=== PATIENT | female | born 1955 | race Caucasian/White ===

== ENCOUNTER → 2017-09-08 | Outpatient (CLI) | payer OTHER ==
[~2017-09-08] MED LIST: ALBUAER19 INH; CHOLTAB3 PO; CYCL10TA6 PO; FEXO1TAB49 PO; FLUT0.0529 NAE; HYDR-5688 PO; NABU500T PO; PRLSR20 PO; SIMV20TA2 PO; TRAZ50TA35 PO
== END | disposition home or self-care (01) ==
LOC: C.LABPBG 12:48
PROVIDERS: ATTEND Family Medicine
DX: R35.0 Frequency of micturition (principal)

== ENCOUNTER → 2017-09-24 | Outpatient (CLI) | payer OTHER | END | disposition home or self-care (01) | LOC: C.LABPBG 09:20 | PROVIDERS: ATTEND Family Medicine | DX: E78.5 Hyperlipidemia, unspecified (principal) ==

== ENCOUNTER 2020-04-05 16:43 | Inpatient (IN) ==
[2020-04-05] MEDS ORDERED: DEXAMETHASONE SOD INJ 10 MG/ML VIAL IV ONE (17:27)
[2020-04-05] MEDS ORDERED: SODIUM CHLORIDE 0.9% 1000ML 1,000 ML IV SCH (17:30)
[2020-04-05 17:46] LABS: Hematocrit (blood only) 39.2 % (37-47); Hemoglobin 12.5 g/dL (12.0-16.0); Immature Granulocytes # (auto) 0.01 K/uL (0.00-0.02); Immature Granulocytes % (auto) 0.2 %; Lymphocytes % (auto) 14.7 %; Mean Corpuscular Hemoglobin 27.9 pg (25-34); Mean Corpuscular Hgb Conc 31.9 g/dL (32-36); Mean Corpuscular Volume 87.5 fL (80-100); Mean Platelet Volume 11.3 fL (7.4-10.4); Monocytes # (auto) 0.28 K/uL (0.11-0.59); Monocytes % (auto) 6.8 %; Neutrophils % (auto) 78.3 %; Platelet Count 128 K/uL (130-400); RDW Coefficient of Variation 14.1 % (11.5-14.5); RDW Standard Deviation 45.1 fL (36.4-46.3); Red Blood Count 4.48 M/uL (4.2-5.4); White Blood Count 4.09 K/uL (4.8-10.8)
[2020-04-05 17:50] LABS: Appearance Urine Clear (Clear); Bilirubin Urine Negative (Negative); Blood Urine Negative (Negative); Color Urine Yellow; Glucose Urine UA Negative (Negative); Ketones Urine Trace (Negative); Leukocyte Esterase Urine Negative (Negative); Nitrite Urine Negative (Negative); Protein Urine Negative (Negative); Specific Gravity Urine 1.005 (1.000-1.030); Urobilinogen Urine Negative (Negative); pH Urine 6.5 (4.5-7.5)
[2020-04-05 17:57] LABS: Partial Thromboplastin Ratio 1.1; Partial Thromboplastin Time 30.2 Seconds (21.0-31.0); Prothrombin Time 10.3 Seconds (9.0-12.0)
[2020-04-05 18:06] LABS: Alanine Aminotransferase 132 U/L (12-78); Albumin Level 3.2 gm/dl (3.4-5.0); Aspartate Aminotransferase 137 U/L (15-37); BUN Creatinine Ratio 9.8 (10-20); Blood Urea Nitrogen 8 mg/dl (7-18); Calcium 8.4 mg/dl (8.5-10.1); Carbon Dioxide 29 mmol/L (21-32); Chloride 101 mmol/L (98-107); Creatinine Clr Calc Pharmacy 85.9 ml/min; Est GFR (African American) 85.7; Glucose 124 mg/dl (70-99); Magnesium 2.2 mg/dl (1.8-2.4); Potassium 3.3 mmol/L (3.5-5.1); Sodium 138 mmol/L (136-145)
[2020-04-05 18:11] LABS: Albumin Globulin Ratio 0.8 (0.9-2); Alkaline Phosphatase 337 U/L (45-117); Bilirubin,Total 1.2 mg/dl (0.2-1); Globulin 4.1 gm/dl (2.5-4.0); Total Protein 7.3 gm/dl (6.4-8.2); Troponin I < 0.015 ng/ml (0-0.045)
[2020-04-05 18:18] LABS: Influenza A virus by PCR Negative (Negative); Influenza B virus by PCR Negative (Negative)
--- NOTE | 2020-04-05 18:25 | XRay Report ---
SINGLE VIEW CHEST CLINICAL HISTORY: Dyspnea. FINDINGS: An AP, portable, upright chest radiograph is compared to study dated 03/29/2016. The examin ation is degraded by portable technique and large body habitus. The heart is top normal for projecti on. Bilateral patchy airspace consolidation is seen throughout both lungs. No large pleural effusion or pneumothorax is identified. The skeletal structures are osteopenic. The bony thorax is grossly int act. IMPRESSION: Multifocal bilateral airspace consolidation is seen throughout both lungs. Differential c onsiderations include an infectious/inflammatory pneumonitis versus pulmonary edema. Clinical correla tion will be essential. Radiographic follow-up to resolution is recommended. ACT 112: Negative or not required by law. Electronically signed by: Stuart Martínez M.D. 04/05/2020 6:23 PM
--- NOTE | 2020-04-05 18:50 | Emergency Department Note ---
Impression & Plan Pneumonia due to virus, COVID-19, Acute respiratory failure with hypoxemia ED Provider Note NAME: JUDAH MYERS AGE: 65 SEX: F : 1955 ARRIVES VIA: Walk-In INFORMANT: Patient, ED PROVIDER(S): Sean العراقي MD Chief Complaint: Shortness of breath HPI: Patient does present with worsening shortness of breath. The patient states that her symptoms began last Friday. Patient does relate that she had checked her O2 sats at home and noticed that they were worse in the 70s. Patient on ambulation back to her room was also noted to be 70%. The patient states that she does have a pulse oximeter at home as she does have elderly parents with whom she lives with. The patient did have a Covid test completed on Friday but is still pending the result. Patient denies any fevers or chills. The patient states that she has felt fatigued with associated cough that is intermittently dry and sometimes productive with brownish sputum. Patient denies any prior history of heart or lung problems. The patient is a non- smoker. Patient denies any vomiting but has had associated nausea along with a decreased p.o. intake and appetite. Patient does not complain of any dysuria, hematuria, constipation or bloody stools. ROS: See HPI for pertinent positives and negatives. A total of 10 systems were reviewed and otherwise negative. Past medical history: See below Surgical history: See below Social history: See below Physical Exam: GENERAL: Nasal cannula mask in place, mild distress. EYE EXAM: Normal conjunctiva. PERRL, no anisocoria and EOM's grossly intact w/o pain. NECK: Supple, no nuchal rigidity, no adenopathy, non-tender. No signs of meningismus. LUNGS: Bibasilar crackles noted. HEART: NSR, no MRG. ABDOMEN: Abdomen soft, non-tender, normo-active bowel sounds, no masses, no rebound or guarding. BACK: No CVA TTP. SKIN: No rashes and no bruising. UPPER EXTREMITIES: Upper extremities are grossly normal. LOWER EXTREMITIES: Grossly normal, no edema. NEURO EXAM: A&O x3, cranial nerves II-XII grossly intact, normal speech, moves all 4 extremities on command w/o issue. Differential diagnoses: Reactive airway disease, pneumonia, pneumothorax, COPD, CHF, infections, cardiac ischemia, pulmonary embolism, musculoskeletal, gastrointestinal, as well as other pathologies. Course: Patient was seen and evaluated the bedside. Full history physical exam was performed. EKG: Indication: Shortness of breath Imaging Studies: Radiology results as stated below per my review in the radiologist's interpretation: SINGLE VIEW CHEST CLINICAL HISTORY: Dyspnea. FINDINGS: An AP, portable, upright chest radiograph is compared to study dated 03/29/2016. The examination is degraded by portable technique and large body habitus. The heart is top normal for projection. Bilateral patchy airspace consolidation is seen throughout both lungs. No large pleural effusion or pneumothorax is identified. The skeletal structures are osteopenic. The bony thorax is grossly intact. IMPRESSION: Multifocal bilateral airspace consolidation is seen throughout both lungs. Differential considerations include an infectious/inflammatory pneumonitis versus pulmonary edema. Clinical correlation will be essential. Radiographic follow-up to resolution is recommended. ACT 112: Negative or not required by law. Electronically signed by: Stuart Martínez M.D. 04/05/2020 6:23 PM Dictated: 04/05/201821 Transcribed: 04/05/201821 Cardiac monitoring: An order was placed for continuous cardiac monitoring. The monitor shows a rate of [] with [] rhythm. MDM: Patient was seen due to concern for hypoxia and increasing shortness of breath. The patient does have leukopenia with lymphopenia and very mild thrombocytopenia. The patient does have transaminitis likely consistent with the patient's viral type illness the patient does not have any abdominal pain or vomiting. Patient did receive dexamethasone along with IV fluids. The patient was stable on 3 L nasal cannula. Urinalysis negative for blood or infection. The patient had negative flu and positive Covid. The patient was informed of these findings and told to inform her family members to get tested and quarantine. Given the patient's significant hypoxia I did speak with the on- call hospitalist and the patient was admitted to the medicine service under Dr. Perez. Critical Care: I have personally spent 52 minutes of critical care time in direct management of this patient. This includes bedside care, interpretation of diagnostic studies, and testing, discussion with consultants, patient, and family members, and other require inpatient management activities. This 52 minutes is in excess of all separately billable procedures. Past Med/Surg History Medical History (Updated 04/05/20 @ 22:03 by Stewart Jones MD) Elevated blood pressure reading Herpes zoster Hypertension Surgical History H/O arthroscopy of knee History of arthroplasty of left knee "Dr. Cai 10/2013" History of colposcopy Family History Mother Gallbladder disease Kidney stones Brother Gallbladder disease Prostate cancer Sister Kidney disease Bipolar disorder Father Myocardial infarction Colon cancer Denies family history of Ovarian cancer Breast cancer Social History Smoking Status: Never smoker Second Hand Exposure: No; Hx Alcohol Use: No Hx Substance Use: No Preferred Language: Finnish Communication Ability: Effective Visual Impairment: No Limitations Hearing Ability: Normal Beliefs That Will Affect Care: None marital status: Current Living Situation: Spouse current occupational status: retired Feels Safe at Home: Yes Childhood Exposure to Second-Hand Smoke: Yes Dental Care, Regularly: Yes Physical Activity Frequency: 3-4 Times per Week Seatbelt Use: always Assistive Devices: Walker Allergies Allergies Allergy/AdvReac Type Severity Reaction Status Date / Time adhesive Allergy Unknown Skin Verified 04/05/20 19:08 irritation No Known Drug Allergies Allergy . Verified 04/05/20 19:08 Home Meds Home Medications Medication Instructions Recorded Confirmed turmeric root extract 500 mg 500 mg PO DAILY 11/23/18 04/05/20 capsule fexofenadine 60 mg tablet 60 mg PO DAILY PRN tab 04/03/20 04/05/20 acetaminophen [Tylenol Extra 1,000 mg PO Q6H PRN 04/05/20 04/05/20 Strength] benzonatate [Tessalon Perles] See Rx Instructions PO TID PRN 04/05/20 04/05/20 cyclobenzaprine 5 mg PO TID PRN 04/05/20 04/05/20 fluticasone propionate [Flonase 2 sprays INTNAS DAILY PRN 04/05/20 04/05/20 Allergy Relief] ibuprofen [Motrin IB] 400 mg PO Q6H PRN 04/05/20 04/05/20 meloxicam 15 mg PO .HOLD 04/05/20 04/05/20 ondansetron HCl [Zofran] 4 mg PO Q6H PRN 04/05/20 04/05/20 Previous Rx's Medication Instructions Recorded bupropion HCl 300 mg 24 hr tablet, 300 mg PO QAM #90 tab 09/30/19 extended release simvastatin 20 mg tablet 20 mg PO QPM #30 tab 12/29/19 losartan 50 mg tablet 50 mg PO DAILY #90 tab 03/15/20 Results & Data (ED) Vital Signs Vital Signs - 24 hr 04/05/20 16:52 04/05/20 17:09 04/05/20 17:15 Temperature 37.0 C Temperature Source Skin Pulse Rate 90 84 Pulse Rate from SpO2 Sensor 84 Respiratory Rate 19 27 H Blood Pressure 148/80 H 113/71 Blood Pressure Mean 102 77 Pulse Oximetry 88 L 97 96 Oxygen Delivery Method Room Air Nasal Cannula Nasal Cannula Oxygen Flow Rate 4 3 Sepsis Recent Fever Within 48 Hours Yes Sepsis New/Unexplained Change in Mental Status N/A Sepsis Action Taken by Nursing No Action Required 04/05/20 17:16 04/05/20 17:20 04/05/20 17:27 Temperature Temperature Source Pulse Rate 83 83 Pulse Rate from SpO2 Sensor 83 83 Respiratory Rate 24 27 H Blood Pressure 124/76 Blood Pressure Mean 98 Pulse Oximetry 97 97 96 Oxygen Delivery Method Nasal Cannula Oxygen Flow Rate 3 Sepsis Recent Fever Within 48 Hours Sepsis New/Unexplained Change in Mental Status Sepsis Action Taken by Nursing 04/05/20 17:30 04/05/20 17:31 04/05/20 18:00 Temperature Temperature Source Pulse Rate 81 83 81 Pulse Rate from SpO2 Sensor 81 83 82 Respiratory Rate 28 H 25 H 25 H Blood Pressure 148/69 H 131/63 Blood Pressure Mean 103 82 Pulse Oximetry 98 98 97 Oxygen Delivery Method Oxygen Flow Rate Sepsis Recent Fever Within 48 Hours Sepsis New/Unexplained Change in Mental Status Sepsis Action Taken by Nursing 04/05/20 18:01 04/05/20 18:30 04/05/20 18:31 Temperature Temperature Source Pulse Rate 80 80 79 Pulse Rate from SpO2 Sensor 80 81 79 Respiratory Rate 29 H 19 24 Blood Pressure 136/75 Blood Pressure Mean 98 Pulse Oximetry 96 97 96 Oxygen Delivery Method Oxygen Flow Rate Sepsis Recent Fever Within 48 Hours Sepsis New/Unexplained Change in Mental Status Sepsis Action Taken by Nursing 04/05/20 19:00 04/05/20 19:01 04/05/20 19:30 Temperature Temperature Source Pulse Rate 79 79 80 Pulse Rate from SpO2 Sensor 79 80 80 Respiratory Rate 27 H 19 22 Blood Pressure 122/83 126/71 Blood Pressure Mean 98 84 Pulse Oximetry 97 97 96 Oxygen Delivery Method Oxygen Flow Rate 3 Sepsis Recent Fever Within 48 Hours Sepsis New/Unexplained Change in Mental Status Sepsis Action Taken by Nursing 04/05/20 19:31 Temperature Temperature Source Pulse Rate 89 Pulse Rate from SpO2 Sensor 80 Respiratory Rate 21 Blood Pressure Blood Pressure Mean Pulse Oximetry 96 Oxygen Delivery Method Oxygen Flow Rate Sepsis Recent Fever Within 48 Hours Sepsis New/Unexplained Change in Mental Status Sepsis Action Taken by Alf Medications Current Medication List: was personally reviewed by me Laboratory Data Attestation: I reviewed the patient's lab results. Result diagrams: 04/06/20 05:35 04/06/20 05:35 Lab Results 04/05/20 04/05/20 04/05/20 Range/Units 17:30 17:30 17:30 WBC 4.09 L (4.8-10.8) K/uL RBC 4.48 (4.2-5.4) M/uL Hgb 12.5 (12.0-16.0) g/dL Hct 39.2 (37-47) % MCV 87.5 (80-100) fL MCH 27.9 (25-34) pg MCHC 31.9 L (32-36) g/dL RDW Std Deviation 45.1 (36.4-46.3) fL RDW Coeff of Ang 14.1 (11.5-14.5) % Plt Count 128 L (130-400) K/uL MPV 11.3 H (7.4-10.4) fL Immature Gran % (Auto) 0.2 % Neut % (Auto) 78.3 % Lymph % (Auto) 14.7 % [place] % (Auto) 6.8 % Eos % (Auto) 0.0 % Baso % (Auto) 0.0 % Neut # (Auto) 3.20 (1.4-6.5) K/uL Lymph # (Auto) 0.60 L (1.2-3.4) K/uL [place] # (Auto) 0.28 (0.11-0.59) K/uL Eos # (Auto) 0.00 (0-0.5) K/uL Baso # (Auto) 0.00 (0-0.2) K/uL Immature Gran # (Auto) 0.01 (0.00-0.02) K/uL PT 10.3 (9.0-12.0) Seconds INR 1.0 (0.9-1.1) APTT 30.2 (21.0-31.0) Seconds PTT Ratio 1.1 D-Dimer (0-500) ug/L FEU Sodium 138 (136-145) mmol/L Potassium 3.3 L (3.5-5.1) mmol/L Chloride 101 (98-107) mmol/L Carbon Dioxide 29 (21-32) mmol/L Anion Gap 8.0 (3-11) BUN 8 (7-18) mg/dl Creatinine 0.84 (0.6-1.2) mg/dl Est Cr Clr Drug Dosing 85.9 ml/min Est GFR ( Amer) 85.7 Est GFR (Non-Af Amer) 74.0 BUN/Creatinine Ratio 9.8 L (10-20) Glucose 124 H (70-99) mg/dl Calcium 8.4 L (8.5-10.1) mg/dl Magnesium 2.2 (1.8-2.4) mg/dl Total Bilirubin 1.2 H (0.2-1) mg/dl AST 137 H (15-37) U/L ALT 132 H (12-78) U/L Alkaline Phosphatase 337 H (45-117) U/L Troponin I < 0.015 (0-0.045) ng/ml Total Protein 7.3 (6.4-8.2) gm/dl Albumin 3.2 L (3.4-5.0) gm/dl Globulin 4.1 H (2.5-4.0) gm/dl Albumin/Globulin Ratio 0.8 L (0.9-2) Urine Color Urine Appearance (Clear) Urine pH (4.5-7.5) Ur Specific [place] (1.000-1.030) Urine Protein (Negative) Urine Glucose (UA) (Negative) Urine Ketones (Negative) Urine Blood (Negative) Urine Nitrite (Negative) Urine Bilirubin (Negative) Urine Urobilinogen (Negative) Ur Leukocyte Esterase (Negative) COVID-19 Eval Order Influ A Molecular Assay (Negative) Influ B Molecular Assay (Negative) SARS-CoV-2, RNA, NAAT (NEGATIVE) Blood Type Antibody Screen 04/05/20 04/05/20 04/05/20 Range/Units 17:30 17:31 17:46 WBC (4.8-10.8) K/uL RBC (4.2-5.4) M/uL Hgb (12.0-16.0) g/dL Hct (37-47) % MCV (80-100) fL MCH (25-34) pg MCHC (32-36) g/dL RDW Std Deviation (36.4-46.3) fL RDW Coeff of Ang (11.5-14.5) % Plt Count (130-400) K/uL MPV (7.4-10.4) fL Immature Gran % (Auto) % Neut % (Auto) % Lymph % (Auto) % [place] % (Auto) % Eos % (Auto) % Baso % (Auto) % Neut # (Auto) (1.4-6.5) K/uL Lymph # (Auto) (1.2-3.4) K/uL [place] # (Auto) (0.11-0.59) K/uL Eos # (Auto) (0-0.5) K/uL Baso # (Auto) (0-0.2) K/uL Immature Gran # (Auto) (0.00-0.02) K/uL PT (9.0-12.0) Seconds INR (0.9-1.1) APTT (21.0-31.0) Seconds PTT Ratio D-Dimer 700 H* (0-500) ug/L FEU Sodium (136-145) mmol/L Potassium (3.5-5.1) mmol/L Chloride (98-107) mmol/L Carbon Dioxide (21-32) mmol/L Anion Gap (3-11) BUN (7-18) mg/dl Creatinine (0.6-1.2) mg/dl Est Cr Clr Drug Dosing ml/min Est GFR ( Amer) Est GFR (Non-Af Amer) BUN/Creatinine Ratio (10-20) Glucose (70-99) mg/dl Calcium (8.5-10.1) mg/dl Magnesium (1.8-2.4) mg/dl Total Bilirubin (0.2-1) mg/dl AST (15-37) U/L ALT (12-78) U/L Alkaline Phosphatase (45-117) U/L Troponin I (0-0.045) ng/ml Total Protein (6.4-8.2) gm/dl Albumin (3.4-5.0) gm/dl Globulin (2.5-4.0) gm/dl Albumin/Globulin Ratio (0.9-2) Urine Color Yellow Urine Appearance Clear (Clear) Urine pH 6.5 (4.5-7.5) Ur Specific [place] 1.005 (1.000-1.030) Urine Protein Negative (Negative) Urine Glucose (UA) Negative (Negative) Urine Ketones Trace H (Negative) Urine Blood Negative (Negative) Urine Nitrite Negative (Negative) Urine Bilirubin Negative (Negative) Urine Urobilinogen Negative (Negative) Ur Leukocyte Esterase Negative (Negative) COVID-19 Eval Order Influ A Molecular Assay Negative (Negative) Influ B Molecular Assay Negative (Negative) SARS-CoV-2, RNA, NAAT (NEGATIVE) Blood Type Antibody Screen 04/05/20 04/05/20 04/05/20 Range/Units 17:47 17:47 20:33 WBC (4.8-10.8) K/uL RBC (4.2-5.4) M/uL Hgb (12.0-16.0) g/dL Hct (37-47) % MCV (80-100) fL MCH (25-34) pg MCHC (32-36) g/dL RDW Std Deviation (36.4-46.3) fL RDW Coeff of Ang (11.5-14.5) % Plt Count (130-400) K/uL MPV (7.4-10.4) fL Immature Gran % (Auto) % Neut % (Auto) % Lymph % (Auto) % [place] % (Auto) % Eos % (Auto) % Baso % (Auto) % Neut # (Auto) (1.4-6.5) K/uL Lymph # (Auto) (1.2-3.4) K/uL [place] # (Auto) (0.11-0.59) K/uL Eos # (Auto) (0-0.5) K/uL Baso # (Auto) (0-0.2) K/uL Immature Gran # (Auto) (0.00-0.02) K/uL PT (9.0-12.0) Seconds INR (0.9-1.1) APTT (21.0-31.0) Seconds PTT Ratio D-Dimer (0-500) ug/L FEU Sodium (136-145) mmol/L Potassium (3.5-5.1) mmol/L Chloride (98-107) mmol/L Carbon Dioxide (21-32) mmol/L Anion Gap (3-11) BUN (7-18) mg/dl Creatinine (0.6-1.2) mg/dl Est Cr Clr Drug Dosing ml/min Est GFR ( Amer) Est GFR (Non-Af Amer) BUN/Creatinine Ratio (10-20) Glucose (70-99) mg/dl Calcium (8.5-10.1) mg/dl Magnesium (1.8-2.4) mg/dl Total Bilirubin (0.2-1) mg/dl AST (15-37) U/L ALT (12-78) U/L Alkaline Phosphatase (45-117) U/L Troponin I (0-0.045) ng/ml Total Protein (6.4-8.2) gm/dl Albumin (3.4-5.0) gm/dl Globulin (2.5-4.0) gm/dl Albumin/Globulin Ratio (0.9-2) Urine Color Urine Appearance (Clear) Urine pH (4.5-7.5) Ur Specific [place] (1.000-1.030) Urine Protein (Negative) Urine Glucose (UA) (Negative) Urine Ketones (Negative) Urine Blood (Negative) Urine Nitrite (Negative) Urine Bilirubin (Negative) Urine Urobilinogen (Negative) Ur Leukocyte Esterase (Negative) COVID-19 [facility] A Molecular Assay (Negative) Influ B Molecular Assay (Negative) SARS-CoV-2, RNA, NAAT POSITIVE A* (NEGATIVE) Blood Type A Positive Antibody Screen NEGATIVE Administered Medications Albuterol (Albuterol Hfa 8 Gm Inhaler) 2 puffs INH Q2R PRN PRN Reason: SOB/WHEEZING Stop: 05/05/20 22:09 Last Admin: 04/06/20 12:26 Dose: 2 puffs Documented by: [id number] Bupropion HCl (Bupropion Xl 300 Mg Tabcr) [facility] [place] Stop: 05/06/20 08:59 Last Admin: 04/06/20 08:47 Dose: 300 mg Documented by: [id number] Enoxaparin Sodium (Enoxaparin Inj 60 Mg/0.6 Ml Syr) 60 mg SQ DAILY@2000 [facility] Stop: 05/05/20 23:29 Last Admin: 04/05/20 23:28 Dose: 60 mg Documented by: [id number] Azithromycin 500 mg/ Dextrose 255 mls @ 125 mls/hr IV Q24H [facility] Stop: 04/13/20 01:59 Last Infusion: 04/06/20 05:17 Dose: 0 mls/hr Documented by: [id number] Admin: 04/06/20 02:35 Dose: 125 mls/hr Documented by: [id number] Dexamethasone 6 mg/ Syringe 1.5 mls @ 1 mls/min IV [facility] Stop: 05/06/20 08:59 Last Admin: 04/06/20 08:48 Dose: 1 mls/min Documented by: [id number] Ceftriaxone Sodium 2,000 mg/ (Dextrose) 70 mls @ 100 mls/hr IV Q24H [facility]; Protocol Stop: 04/12/20 22:59 Last Infusion: 04/06/20 01:45 Dose: 0 mls/hr Documented by: [id number] Admin: 04/05/20 23:27 Dose: 100 mls/hr Documented by: [id number] Losartan Potassium (Losartan Potassium 50 Mg Tab) 50 mg PO DAILY [facility] Stop: 05/06/20 08:59 Last Admin: 04/06/20 08:47 Dose: 50 mg Documented by: [id number] Simvastatin (Simvastatin 20 Mg Tab) 20 mg PO QPM [facility] Stop: 05/05/20 23:29 Last Admin: 04/05/20 23:29 Dose: 20 mg Documented by: [id number] Sodium Chloride (Sodium Chloride 0.9% 10ml Flush) 30 ml IV Q24H [facility] Stop: 04/10/20 00:01 Last Admin: 04/06/20 01:45 Dose: 30 ml Documented by: [id number] Discontinued Medications Acetaminophen (Acetaminophen 325 Mg Tab) Confirm Administered Dose 650 mg .ROUTE .STK-MED ONE Stop: 04/05/20 20:46 Last Admin: 04/05/20 20:53 Dose: 650 mg Documented by: [id number] Albuterol (Albuterol Hfa 8 Gm Inhaler) 2 puffs INH QIDR [facility]EN Stop: 05/06/20 06:59 Last Admin: 04/06/20 11:44 Dose: Not Given Documented by: [id number] Admin: 04/06/20 08:22 Dose: 2 puffs Documented by: [id number] Dexamethasone (Dexamethasone Sod Inj 10 Mg/Ml Vial) 6 mg IV NOW ONE Stop: 04/05/20 17:28 Last Admin: 04/05/20 17:49 Dose: 6 mg Documented by: [id number] Sodium Chloride (Nss 1000ml) 1,000 mls @ 999 mls/hr IV .Q1H1M [facility] Stop: 04/05/20 18:30 Last Infusion: 04/05/20 18:41 Dose: 0 mls/hr Documented by: [id number] Admin: 04/05/20 17:40 Dose: 999 mls/hr Documented by: [id number] Remdesivir 200 mg/ Sodium (Chloride) 250 mls @ 125 mls/hr IV NOW ONE; Protocol Stop: 04/06/20 01:59 Last Infusion: 04/06/20 02:34 Dose: 0 mls/hr Documented by: [id number] Admin: 04/06/20 00:15 Dose: 125 mls/hr Documented by: [id number] Ioversol (Optiray 320 125ml) 118 ml IV ONCE ONE Stop: 04/05/20 20:50 Last Admin: 04/05/20 20:50 Dose: 1 ml Documented by: [id number] Discharge Plan Visit Data Chief Complaint: Flu Like Symptoms Stated Complaint: SOB, FEVER, COUGH ED Provider: Sean العراقي Discharge Problem: Pneumonia due to virus, COVID-19, Acute respiratory failure with hypoxemia Patient Disposition: Admitted As Inpatient Discharge Instructions Interventions: ED Discharge Assessment Last Done: 04/05/20 22:10
[2020-04-05 20:10] LABS: D Dimer 700 ug/L FEU (0-500)
[2020-04-05] MEDS ORDERED: ACETAMINOPHEN 325 MG TAB ONE (20:45)
[2020-04-05] MEDS ORDERED: OPTIRAY 320 125ml IV ONE (20:49)
--- NOTE | 2020-04-05 21:07 | History & Physical Report ---
Date of Service April 05, 2020 Assessment & Plan (1) Pneumonia due to COVID-19 virus: Pneumonia due to COVID-19/acute respiratory failure with hypoxemia- Decadron 6 mg IV daily Convalescent plasma, consent obtained Remdesivir IV per protocol Ceftriaxone 2 g IV daily Azithromycin 500 mg IV daily Ventolin HFA 2 puffs 4 times daily, and every 2 hours as needed D-dimer is elevated. CT angiography PE protocol has been ordered. Will be placed on Lovenox. Present on Admission?: Yes (2) Acute respiratory failure with hypoxemia: See above Present on Admission?: Yes (3) Hypertension: Continue losartan Present on Admission?: Yes (4) CARRION (nonalcoholic steatohepatitis): Abnormal LFTs. Follow serially for stability Present on Admission?: Yes (5) NITIN (generalized anxiety disorder): Continue bupropion Present on Admission?: Yes (6) Dyslipidemia: Continue simvastatin 20 mg in the evening Present on Admission?: Yes History of Present Illness Chief Complaint: The patient reports that she began to develop generalized weakness and SOB about 6 days ago, and has worsened significantly over the past 2 days. Primary Care Provider: Amarilis Lance MD The patient is a 65 yo female with a PMH of HTN, NITIN, Arhtritis, Hepatiatis, CARRION, Asthma, insomnia, GERD, DLD, and pancytopenia. She presents as noted above. Workup in the ED included a CXR which showed a multifocal pneumonia, platelets 128, K 3.3, D- Dimer 700 and COVID-19 +. Allergies Allergy/AdvReac Type Severity Reaction Status Date / Time adhesive Allergy Unknown Skin Verified 04/05/20 19:08 irritation No Known Drug Allergies Allergy . Verified 04/05/20 19:08 Home Medications Medication Instructions Recorded Confirmed Type turmeric root extract 500 mg 500 mg PO DAILY 11/23/18 04/05/20 History capsule bupropion HCl 300 mg 24 hr tablet, 300 mg PO QAM #90 tab 09/30/19 04/05/20 Rx extended release simvastatin 20 mg tablet 20 mg PO QPM #30 tab 12/29/19 04/05/20 Rx losartan 50 mg tablet 50 mg PO DAILY #90 tab 03/15/20 04/05/20 Rx fexofenadine 60 mg tablet 60 mg PO DAILY PRN tab 04/03/20 04/05/20 History acetaminophen [Tylenol Extra 1,000 mg PO Q6H PRN 04/05/20 04/05/20 History Strength] benzonatate [Tessalon Perles] See Rx Instructions PO TID PRN 04/05/20 04/05/20 History cyclobenzaprine 5 mg PO TID PRN 04/05/20 04/05/20 History fluticasone propionate [Flonase 2 sprays INTNAS DAILY PRN 04/05/20 04/05/20 History Allergy Relief] ibuprofen [Motrin IB] 400 mg PO Q6H PRN 04/05/20 04/05/20 History meloxicam 15 mg PO .HOLD 04/05/20 04/05/20 History ondansetron HCl [Zofran] 4 mg PO Q6H PRN 04/05/20 04/05/20 History Past Med/Surg History Medical History (Updated 04/05/20 @ 22:03 by Stewart Jones MD) Elevated blood pressure reading Herpes zoster Hypertension Surgical History H/O arthroscopy of knee History of arthroplasty of left knee "Dr. Cai 10/2013" History of colposcopy Family History Mother Gallbladder disease Kidney stones Brother Gallbladder disease Prostate cancer Sister Kidney disease Bipolar disorder Father Myocardial infarction Colon cancer Denies family history of Ovarian cancer Breast cancer Social History Smoking Status: Never smoker Second Hand Exposure: No; Hx Alcohol Use: No Hx Substance Use: No Preferred Language: Armenian Visual Impairment: No Limitations Hearing Ability: Normal Beliefs That Will Affect Care: None marital status: Current Living Situation: Spouse current occupational status: retired Feels Safe at Home: Yes Safety Concerns: Feels Safe At This Time Childhood Exposure to Second-Hand Smoke: Yes Dental Care, Regularly: Yes Physical Activity Frequency: 3-4 Times per Week Seatbelt Use: always Review of Systems Review of Systems: The patient denies chest pain, palpitations, lower extremity swelling, sore throat, fevers, chills, sweats, nausea, vomiting, diarrhea , constipation, abdominal pain, pelvic pain, blood in urine or stool, dysuria, urinary frequency or urgency, lightheadedness, dizziness, headache, memory loss, loss of consciousness, rash, abnormal bruising or bleeding, imbalance, focal weakness, numbness or tingling in arms or legs, generalized arthralgias or myalgias, neck pain, or night sweats. The review of systems is otherwise negative other than for that already noted above, and at least 10 systems have been reviewed. Physical Exam Physical Exam: The patient is awake, alert and oriented 3, well developed and well nourished, normocephalic and atraumatic, lying in bed and in no acute distress. HEENT--PERRL, EOMI, mucous membranes and oropharynx normal. Neck--supple. No JVD. No bruits. Thyroid normal, trachea midline, no adenopathy. Heart--normal S1 and S2. No murmurs, rubs or gallops. Lungs--clear bilaterally, no respiratory distress, no accessory muscle use. Abdomen--normal bowel sounds and soft. Nontender. Nondistended. Obese Extremities--no cyanosis or clubbing. No edema. Dermatologic--normal skin turgor, normal color, no abnormal lymph nodes, no rash. Neurologic--cranial nerves II through XII grossly intact. Rheumatologic--normal range of motion. Psychiatric--normal affect. Results & Data Results & Data ([facility]) Vital Signs (Past 12 Hours) Vital Signs Temp Pulse Resp BP Pulse Ox 04/05/20 19:31 89 21 96 04/05/20 19:30 80 22 126/71 96 04/05/20 19:01 79 19 97 04/05/20 19:00 79 27 H 122/83 97 04/05/20 18:31 79 24 96 04/05/20 18:30 80 19 136/75 97 04/05/20 18:01 80 29 H 96 04/05/20 18:00 81 25 H 131/63 97 04/05/20 17:31 83 25 H 98 04/05/20 17:30 81 28 H 148/69 H 98 04/05/20 17:27 96 04/05/20 17:20 83 27 H 124/76 97 04/05/20 17:16 83 24 97 04/05/20 17:15 84 27 H 113/71 96 04/05/20 17:09 97 04/05/20 16:52 98.6 F 90 19 148/80 H 88 L Laboratory Results Laboratory Results WBC 4.09 K/uL (4.8-10.8) L 04/05/20 17:30 RBC 4.48 M/uL (4.2-5.4) 04/05/20 17:30 Hgb 12.5 g/dL (12.0-16.0) 04/05/20 17:30 Hct 39.2 % (37-47) 04/05/20 17:30 MCV 87.5 fL (80-100) 04/05/20 17:30 MCH 27.9 pg (25-34) 04/05/20 17:30 MCHC 31.9 g/dL (32-36) L 04/05/20 17:30 RDW Std Deviation 45.1 fL (36.4-46.3) 04/05/20 17:30 RDW Coeff of Ang 14.1 % (11.5-14.5) 04/05/20 17:30 Plt Count 128 K/uL (130-400) L 04/05/20 17:30 MPV 11.3 fL (7.4-10.4) H 04/05/20 17:30 Immature Gran % (Auto) 0.2 % 04/05/20 17:30 Neut % (Auto) 78.3 % 04/05/20 17:30 Lymph % (Auto) 14.7 % 04/05/20 17:30 [place] % (Auto) 6.8 % 04/05/20 17:30 Eos % (Auto) 0.0 % 04/05/20 17:30 Baso % (Auto) 0.0 % 04/05/20 17:30 Neut # (Auto) 3.20 K/uL (1.4-6.5) 04/05/20 17:30 Lymph # (Auto) 0.60 K/uL (1.2-3.4) L 04/05/20 17:30 [place] # (Auto) 0.28 K/uL (0.11-0.59) 04/05/20 17:30 Eos # (Auto) 0.00 K/uL (0-0.5) 04/05/20 17:30 Baso # (Auto) 0.00 K/uL (0-0.2) 04/05/20 17:30 Immature Gran # (Auto) 0.01 K/uL (0.00-0.02) 04/05/20 17:30 PT 10.3 Seconds (9.0-12.0) 04/05/20 17:30 INR 1.0 (0.9-1.1) 04/05/20 17:30 APTT 30.2 Seconds (21.0-31.0) 04/05/20 17:30 PTT Ratio 1.1 04/05/20 17:30 D-Dimer 700 ug/L FEU (0-500) H* 04/05/20 17:30 Sodium 138 mmol/L (136-145) 04/05/20 17:30 Potassium 3.3 mmol/L (3.5-5.1) L 04/05/20 17:30 Chloride 101 mmol/L (98-107) 04/05/20 17:30 Carbon Dioxide 29 mmol/L (21-32) 04/05/20 17:30 Anion Gap 8.0 (3-11) 04/05/20 17:30 BUN 8 mg/dl (7-18) 04/05/20 17:30 Creatinine 0.84 mg/dl (0.6-1.2) 04/05/20 17:30 Est Cr Clr Drug Dosing 85.9 ml/min 04/05/20 17:30 Est GFR ( Amer) 85.7 04/05/20 17:30 Est GFR (Non-Af Amer) 74.0 04/05/20 17:30 BUN/Creatinine Ratio 9.8 (10-20) L 04/05/20 17:30 Glucose 124 mg/dl (70-99) H 04/05/20 17:30 Calcium 8.4 mg/dl (8.5-10.1) L 04/05/20 17:30 Magnesium 2.2 mg/dl (1.8-2.4) 04/05/20 17:30 Total Bilirubin 1.2 mg/dl (0.2-1) H 04/05/20 17:30 AST 137 U/L (15-37) H 04/05/20 17:30 ALT 132 U/L (12-78) H 04/05/20 17:30 Alkaline Phosphatase 337 U/L (45-117) H 04/05/20 17:30 Troponin I < 0.015 ng/ml (0-0.045) 04/05/20 17:30 Total Protein 7.3 gm/dl (6.4-8.2) 04/05/20 17:30 Albumin 3.2 gm/dl (3.4-5.0) L 04/05/20 17:30 Globulin 4.1 gm/dl (2.5-4.0) H 04/05/20 17:30 Albumin/Globulin Ratio 0.8 (0.9-2) L 04/05/20 17:30 Urine Color Yellow 04/05/20 17:31 Urine Appearance Clear (Clear) 04/05/20 17:31 Urine pH 6.5 (4.5-7.5) 04/05/20 17:31 Ur Specific [place] 1.005 (1.000-1.030) 04/05/20 17:31 Urine Protein Negative (Negative) 04/05/20 17:31 Urine Glucose (UA) Negative (Negative) 04/05/20 17:31 Urine Ketones Trace (Negative) H 04/05/20 17:31 Urine Blood Negative (Negative) 04/05/20 17:31 Urine Nitrite Negative (Negative) 04/05/20 17:31 Urine Bilirubin Negative (Negative) 04/05/20 17:31 Urine Urobilinogen Negative (Negative) 04/05/20 17:31 Ur Leukocyte Esterase Negative (Negative) 04/05/20 17:31 COVID-19 Eval Order Covid19 IDNow [facility] 04/05/20 17:47 Influ A Molecular Assay Negative (Negative) 04/05/20 17:46 Influ B Molecular Assay Negative (Negative) 04/05/20 17:46 SARS-CoV-2, RNA, NAAT POSITIVE (NEGATIVE) A* 04/05/20 17:47 Code Status & VTE Plan Code Status Full code VTE Prophylaxis Plan VTE Prophylaxis will be ordered: Yes PG Care Time/CCT Total # of Minutes Spent Total Time Spent with Patient: Total time spent is greater than 50% in coordination of care (as documented) at patient's floor/unit and/or counseling patient: Coding Level of Care Code 25290 Initial Inpt Care Lvl 3 Diagnoses Pneumonia due to COVID-19 virus U07.1; J12.89 Acute respiratory failure with hypoxemia J96.01 Hypertension I10 CARRION (nonalcoholic steatohepatitis) K75.81 NITIN (generalized anxiety disorder) F41.1 Dyslipidemia E78.5
[2020-04-05 21:23] LABS: Base Excess VBG 1.9 mEq/L; Oxygen Saturation VBG 90.9 %; pH VBG 7.42 (7.36-7.41)
--- NOTE | 2020-04-05 22:10 | Billing Data ---
Date of Service April 05, 2020 Coding Level of Care Code 35162 Initial Inpt Care Lvl 3
[2020-04-05] MEDS ORDERED: ONDANSETRON INJ 2 MG/ML 2 ML VIAL IV PRN (22:46)
[2020-04-05] MEDS ORDERED: FEXOFENADINE 60 MG TAB PO PRN (22:46)
[2020-04-05] MEDS ORDERED: CYCLOBENZAPRINE HCL 5 MG TAB PO PRN (22:46)
[2020-04-05] MEDS: cefTRIAXone SODIUM 2,000 MG in DEXTROSE 5% 50 ML IV SCH (23:27)
[2020-04-05] MEDS: ENOXAPARIN INJ 60 MG/0.6 ML SYR SQ SCH (23:28)
[2020-04-05] MEDS: SIMVASTATIN 20 MG TAB PO SCH (23:29)
[2020-04-06] MEDS ORDERED: REMDESIVIR 200 MG in SODIUM CHLORIDE 0.9% 210 ML IV ONE
[2020-04-06] MEDS: SODIUM CHLORIDE 0.9% 10ML FLUSH IV SCH ×2 (01:45→22:12)
[2020-04-06] MEDS: AZITHROMYCIN 500 MG in DEXTROSE 5% 250 ML IV SCH (02:35)
[2020-04-06 06:23] LABS: Hematocrit (blood only) 38.4 % (37-47); Hemoglobin 12.2 g/dL (12.0-16.0); Lymphocytes # (auto) 0.38 K/uL (1.2-3.4); Lymphocytes % (auto) 10.6 %; Mean Corpuscular Hgb Conc 31.8 g/dL (32-36); Mean Corpuscular Volume 88.1 fL (80-100); Mean Platelet Volume 11.6 fL (7.4-10.4); Monocytes # (auto) 0.18 K/uL (0.11-0.59); Neutrophils # (auto) 3.01 K/uL (1.4-6.5); Neutrophils % (auto) 84.4 %; Platelet Count 143 K/uL (130-400); RDW Coefficient of Variation 13.9 % (11.5-14.5); RDW Standard Deviation 45.5 fL (36.4-46.3); Red Blood Count 4.36 M/uL (4.2-5.4); White Blood Count 3.57 K/uL (4.8-10.8)
[2020-04-06 06:34] LABS: INR 0.9 (0.9-1.1); Partial Thromboplastin Ratio 1.1; Partial Thromboplastin Time 31.4 Seconds (21.0-31.0); Prothrombin Time 9.9 Seconds (9.0-12.0)
[2020-04-06 06:57] LABS: Albumin Level 2.8 gm/dl (3.4-5.0); BUN Creatinine Ratio 7.8 (10-20); Creatinine Clr Calc Pharmacy 86.8 ml/min; Magnesium 2.5 mg/dl (1.8-2.4); Potassium 3.4 mmol/L (3.5-5.1)
[2020-04-06 07:02] LABS: Albumin Globulin Ratio 0.7 (0.9-2); Bilirubin,Total 0.5 mg/dl (0.2-1); Total Protein 6.8 gm/dl (6.4-8.2)
--- NOTE | 2020-04-06 08:08 | CT Scan Report ---
CT angio chest PE protocol CT DOSE: 531.18 mGycm HISTORY: 65 years-old Female with PE. Acute shortness of breath. COVID Positive. TECHNIQUE: Multiple CTA images of the chest were obtained after the intravenous administration of 118 ml Optiray 320. Coronal and sagittal MIPS were obtained from the axial data set and were submitted for review. All measurements were obtained according to NASCET criteria. A dose lowering technique w as utilized adhering to the principles of ALARA. COMPARISON: Chest radiograph of same day FINDINGS: CTA: Mild to moderate cardiomegaly. No pericardial effusion. Respiratory motion artifact limits the study. No thoracic aortic aneurysm or dissection. Patency of the imaged great vessels. The pulmonary arteri al tree is opacified to the level of the subsegmental branches. No filling defects are identified to suggest thromboembolic disease. CT CHEST: 8 mm hypodense right thyroid nodule. Mildly prominent mediastinal lymph nodes measuring up to 9 mm ar e likely reactive. The inferior lung bases are not imaged. There is no pneumothorax or pleural effusi on. Extensive multilobar distribution of patchy groundglass and alveolar opacities. Central airways a re patent. Small hiatal hernia. Hepatosplenomegaly with hepatic steatosis. Unremarkable soft tissues. No acute f racture. Subcentimeter sclerotic foci of the humeral heads. IMPRESSION: 1. Cardiomegaly without evidence of pulmonary thromboembolic disease. 2. Extensive multilobar patchy groundglass and alveolar opacities are compatible with multifocal pneu monia. 3. Mildly prominent mediastinal lymph nodes are likely reactive. 4. Hepatic steatosis with hepatosplenomegaly. ACT 112: Negative or not required by law. The above report was generated using voice recognition software. It may contain grammatical, syntax o r spelling errors. Electronically signed by: Mario Matias M.D. 04/06/2020 8:06 AM
[2020-04-06] MEDS: ALBUTEROL HFA 8 GM INHALER INH SCH ×2 (08:22→11:44)
[2020-04-06] MEDS: buPROPion XL 300 MG TABCR PO SCH (08:47)
[2020-04-06] MEDS: LOSARTAN POTASSIUM 50 MG TAB PO SCH (08:47)
[2020-04-06] MEDS: dexAMETHasone 6 MG in SYRINGE 0 ML IV SCH (08:48)
[2020-04-06] MEDS: ALBUTEROL HFA 8 GM INHALER INH PRN (12:26)
--- NOTE | 2020-04-06 13:07 | Electrocardiogram Report ---
Test Reason : Blood Pressure : / mmHG Vent. Rate : 082 BPM Atrial Rate : 082 BPM P-R Int : 138 ms QRS Dur : 086 ms QT Int : 382 ms P-R-T Axes : 047 000 017 degrees QTc Int : 446 ms Normal sinus rhythm Normal ECG When compared with ECG of 29-MAR-2016 19:05, No significant change was found Confirmed by Anthony Vee ([id number]) on 04/06/2020 1:07:17 PM Referred By: REFERRED SELF Confirmed By:Tuan Vee
--- NOTE | 2020-04-06 14:55 | Hospitalist Progress Note ---
Date of Service April 06, 2020 Assessment & Plan (1) Pneumonia due to COVID-19 virus: Initially diagnosed on 04/03/2020. - Convalescent plasma ordered - pending - Continue remdesivir (End date: 04/09/2020) - Continue dexamethasone 6 mg IV daily (End date: 04/14/2020) - Check WBC and procalcitonin tomorrow AM - If negative, will stop CAP abx. - Supplemental O2 as needed (2) Acute respiratory failure with hypoxemia: See above (3) Elevated blood sugar: Blood sugar up to 221 on 04/06 while on steroids. - Check A1c in the morning (4) Hepatitis: Abnormal LFTs on admission with AST/ALT at 140/130. Concern for viral hepatitis from Covid, though normal coagulation labs indicate acceptable hepatic function. - Follow serially for stability (5) Hypertension: BP is 150/80 today. - Continue losartan (6) NITIN (generalized anxiety disorder): No acute inpatient needs today. - Continue bupropion (7) Dyslipidemia: - Continue simvastatin (8) DVT prophylaxis: Lovenox 60 mg SQ daily Admission and Anticipated Discharge Date Admission Date: April 05, 2020 Subjective Feeling overall stable. No major shortness of breath while at rest. Some shortness of breath with exertion. Reports no fevers/chills, chest pain, abdominal pain, nausea, or vomiting. Physical Exam Constitutional: WD/WN, vitals as above Eyes: EOM intact bilaterally; no conjunctival abnormality ENMT: external ear and nose normal, oropharynx normal Neck: trachea midline, no thyromegaly normal visual inspection Respiratory: normal respiratory effort, lungs clear to auscultation no respiratory distress Cardiovascular: RRR, no murmur, no edema Gastrointestinal (Abdomen): Inspection/Auscultation: abdomen normal to inspection; abdomen not distended Musculoskeletal: no cyanosis or clubbing, extremities motor strength 5/5 Skin: no rashes, warm and dry Neurologic: moves all extremities and awake Psychiatric: Orientation: alert, oriented to person and cooperative Results & Data Results & Data ([facility]) Vital Signs (Past 12 Hours) Vital Signs Temp Pulse Pulse Resp BP Pulse Ox 04/06/20 14:12 37.0 C 81 148/81 H 92 04/06/20 12:28 81 18 91 04/06/20 12:00 37.3 C 82 150/77 H 90 04/06/20 09:48 36.9 C 85 146/78 H 91 04/06/20 08:22 73 18 91 04/06/20 08:00 71 04/06/20 07:15 36.8 C 74 18 126/74 91 04/06/20 04:00 36.6 C 66 18 123/74 93 PG Care Time/CCT Total # of Minutes Spent Total Time Spent with Patient: Total time spent is greater than 50% in coordination of care (as documented) at patient's floor/unit and/or counseling patient: Coding Level of Care Code 17336 Subseq Hosp Care Lvl 3 Diagnoses Pneumonia due to COVID-19 virus U07.1; J12.89 Acute respiratory failure with hypoxemia J96.01 Elevated blood sugar R73.9 Hepatitis K75.9 Hypertension I10 NITIN (generalized anxiety disorder) F41.1 Dyslipidemia E78.5 DVT prophylaxis Z29.9
[2020-04-06] MEDS: REMDESIVIR 100 MG in SODIUM CHLORIDE 0.9% 230 ML IV SCH (20:53)
[2020-04-06] MEDS: ENOXAPARIN INJ 60 MG/0.6 ML SYR SQ SCH (20:53)
[2020-04-06] MEDS: SIMVASTATIN 20 MG TAB PO SCH (20:54)
[2020-04-06] MEDS: BENZONATATE 100 MG CAPSULE PO PRN (22:12)
[2020-04-06] MEDS: ACETAMINOPHEN 325 MG TAB PO PRN (22:12)
[2020-04-06] MEDS: cefTRIAXone SODIUM 2,000 MG in DEXTROSE 5% 50 ML IV SCH (22:17)
[2020-04-07 07:05] LABS: Hematocrit (blood only) 38.4 % (37-47); Hemoglobin 12.1 g/dL (12.0-16.0); Immature Granulocytes # (auto) 0.03 K/uL (0.00-0.02); Immature Granulocytes % (auto) 0.4 %; Lymphocytes # (auto) 0.66 K/uL (1.2-3.4); Mean Corpuscular Hemoglobin 27.9 pg (25-34); Mean Corpuscular Hgb Conc 31.5 g/dL (32-36); Mean Corpuscular Volume 88.5 fL (80-100); Mean Platelet Volume 10.8 fL (7.4-10.4); Monocytes # (auto) 0.56 K/uL (0.11-0.59); Monocytes % (auto) 6.8 %; Neutrophils % (auto) 84.8 %; Platelet Count 203 K/uL (130-400); RDW Coefficient of Variation 13.8 % (11.5-14.5); RDW Standard Deviation 45.4 fL (36.4-46.3); Red Blood Count 4.34 M/uL (4.2-5.4); White Blood Count 8.25 K/uL (4.8-10.8)
[2020-04-07 07:22] LABS: Partial Thromboplastin Time 27.3 Seconds (21.0-31.0); Prothrombin Time 10.1 Seconds (9.0-12.0)
[2020-04-07 07:37] LABS: Estimated Average Glucose 120 mg/dl; Hemoglobin A1C 5.8 % (4.5-5.6)
[2020-04-07 07:38] LABS: Albumin Level 2.8 gm/dl (3.4-5.0); BUN Creatinine Ratio 14.8 (10-20); Creatinine Clr Calc Pharmacy 82.8 ml/min; Est GFR (African American) 82.2; Est GFR (Non-African American) 70.9; Magnesium 2.5 mg/dl (1.8-2.4); Potassium 3.4 mmol/L (3.5-5.1)
[2020-04-07 07:41] LABS: Albumin Globulin Ratio 0.7 (0.9-2); Bilirubin,Total 0.6 mg/dl (0.2-1); Globulin 4.2 gm/dl (2.5-4.0)
[2020-04-07] MEDS: dexAMETHasone 6 MG in SYRINGE 0 ML IV SCH (09:01)
[2020-04-07] MEDS: LOSARTAN POTASSIUM 50 MG TAB PO SCH (09:02)
[2020-04-07] MEDS: AZITHROMYCIN 500 MG in DEXTROSE 5% 250 ML IV SCH (09:02)
[2020-04-07] MEDS: buPROPion XL 300 MG TABCR PO SCH (09:02)
[2020-04-07] MEDS: ALBUTEROL HFA 8 GM INHALER INH PRN (09:33)
--- NOTE | 2020-04-07 14:49 | Hospitalist Progress Note ---
Date of Service April 07, 2020 Assessment & Plan (1) Pneumonia due to COVID-19 virus: Initially diagnosed on 04/03/2020. - Convalescent plasma ordered - pending - Continue remdesivir (End date: 04/09/2020) - Continue dexamethasone 6 mg IV daily (End date: 04/14/2020) - Stop CAP abx for negative procalcitonin on 04/07. - Supplemental O2 as needed (2) Acute respiratory failure with hypoxemia: See above (3) Elevated blood sugar: Blood sugar up to 221 on 04/06 while on steroids. - A1c was 5.8% on 04/07 - Monitor (4) Hepatitis: Abnormal LFTs on admission with AST/ALT at 140/130. Concern for viral hepatitis from Covid, though normal coagulation labs indicate acceptable hepatic function. - Follow serially for stability - Still elevated. (5) Hypertension: BP is 170/90 today. - Continue losartan (6) NITIN (generalized anxiety disorder): No acute inpatient needs today. - Continue bupropion (7) Dyslipidemia: - Continue simvastatin (8) DVT prophylaxis: Lovenox 60 mg SQ daily Admission and Anticipated Discharge Date Admission Date: April 05, 2020 Subjective Some shortness of breath with exertion today. Reports no fevers/chills, chest pain, abdominal pain, nausea, or vomiting. Physical Exam Constitutional: WD/WN, vitals as above Eyes: EOM intact bilaterally; no conjunctival abnormality ENMT: external ear and nose normal, oropharynx normal Neck: trachea midline, no thyromegaly normal visual inspection Respiratory: normal respiratory effort, lungs clear to auscultation no respiratory distress Cardiovascular: RRR, no murmur, no edema Gastrointestinal (Abdomen): Inspection/Auscultation: abdomen normal to inspection; abdomen not distended Musculoskeletal: no cyanosis or clubbing, extremities motor strength 5/5 Skin: no rashes, warm and dry Neurologic: moves all extremities and awake Psychiatric: Orientation: alert, oriented to person and cooperative Results & Data Results & Data ([facility]) Vital Signs (Past 12 Hours) Vital Signs Temp Pulse Resp BP BP Pulse Ox 04/07/20 12:00 90 04/07/20 10:56 36.8 C 81 20 168/89 H 84 L 04/07/20 09:33 80 18 90 04/07/20 08:00 37.0 C 79 20 148/81 H 90 04/07/20 04:00 37.1 C 62 21 134/79 93 PG Care Time/CCT Total # of Minutes Spent Total Time Spent with Patient: Total time spent is greater than 50% in coordination of care (as documented) at patient's floor/unit and/or counseling patient: Coding Level of Care Code 71013 Subseq Hosp Care Lvl 3 Diagnoses Pneumonia due to COVID-19 virus U07.1; J12.89 Acute respiratory failure with hypoxemia J96.01 Elevated blood sugar R73.9 Hepatitis K75.9 Hypertension I10 NITIN (generalized anxiety disorder) F41.1 Dyslipidemia E78.5 DVT prophylaxis Z29.9
[2020-04-07] MEDS: REMDESIVIR 100 MG in SODIUM CHLORIDE 0.9% 230 ML IV SCH (22:30)
[2020-04-07] MEDS: SODIUM CHLORIDE 0.9% 10ML FLUSH IV SCH (22:31)
[2020-04-07] MEDS: ENOXAPARIN INJ 60 MG/0.6 ML SYR SQ SCH (22:33)
[2020-04-07] MEDS: SIMVASTATIN 20 MG TAB PO SCH (22:33)
[2020-04-07] MEDS: cefTRIAXone SODIUM 2,000 MG in DEXTROSE 5% 50 ML IV SCH (23:33)
[2020-04-08 04:41] LABS: Hematocrit (blood only) 35.6 % (37-47); Hemoglobin 11.4 g/dL (12.0-16.0); Immature Granulocytes # (auto) 0.04 K/uL (0.00-0.02); Immature Granulocytes % (auto) 0.6 %; Lymphocytes # (auto) 0.74 K/uL (1.2-3.4); Mean Corpuscular Hemoglobin 28.6 pg (25-34); Mean Corpuscular Volume 89.2 fL (80-100); Mean Platelet Volume 10.5 fL (7.4-10.4); Monocytes # (auto) 0.43 K/uL (0.11-0.59); Monocytes % (auto) 6.9 %; Neutrophils # (auto) 4.98 K/uL (1.4-6.5); Neutrophils % (auto) 80.5 %; Platelet Count 215 K/uL (130-400); RDW Standard Deviation 46.4 fL (36.4-46.3); Red Blood Count 3.99 M/uL (4.2-5.4); White Blood Count 6.19 K/uL (4.8-10.8)
[2020-04-08 04:52] LABS: Partial Thromboplastin Time 28.6 Seconds (21.0-31.0); Prothrombin Time 10.6 Seconds (9.0-12.0)
[2020-04-08] MEDS: dexAMETHasone 6 MG in SYRINGE 0 ML IV SCH (09:00)
[2020-04-08] MEDS: buPROPion XL 300 MG TABCR PO SCH (09:00)
[2020-04-08] MEDS: LOSARTAN POTASSIUM 50 MG TAB PO SCH (09:00)
[2020-04-08] MEDS: AZITHROMYCIN 500 MG in DEXTROSE 5% 250 ML IV SCH (09:00)
[2020-04-08] MEDS ORDERED: COUGH DROP (SUGAR FREE) LOZ 24 LOZ/1 BOX BUCCAL ONE (16:35)
[2020-04-08 17:16] LABS: Albumin Globulin Ratio 0.7 (0.9-2); Albumin Level 2.6 gm/dl (3.4-5.0); Bilirubin,Total 0.5 mg/dl (0.2-1); Calcium 8.1 mg/dl (8.5-10.1); Creatinine Clr Calc Pharmacy 109.1 ml/min; Globulin 3.7 gm/dl (2.5-4.0); Magnesium 2.6 mg/dl (1.8-2.4); Phosphorus 3.3 mg/dl (2.5-4.9); Potassium 3.5 mmol/L (3.5-5.1); Total Protein 6.3 gm/dl (6.4-8.2)
[2020-04-08] MEDS: BENZONATATE 100 MG CAPSULE PO PRN (17:20)
[2020-04-08] MEDS: REMDESIVIR 100 MG in SODIUM CHLORIDE 0.9% 230 ML IV SCH (20:49)
[2020-04-08] MEDS: SIMVASTATIN 20 MG TAB PO SCH (20:57)
[2020-04-08] MEDS: ENOXAPARIN INJ 60 MG/0.6 ML SYR SQ SCH (20:57)
[2020-04-08] MEDS: cefTRIAXone SODIUM 2,000 MG in DEXTROSE 5% 50 ML IV SCH (22:21)
[2020-04-08] MEDS: SODIUM CHLORIDE 0.9% 10ML FLUSH IV SCH (22:21)
[2020-04-09] MEDS: ACETAMINOPHEN 325 MG TAB PO PRN ×3 (00:35→17:05)
[2020-04-09] MEDS ORDERED: SODIUM CHLORIDE 0.65% NA SOLN 45 ML (OCEAN) PRN (04:40)
[2020-04-09] MEDS: BENZONATATE 100 MG CAPSULE PO PRN (05:50)
[2020-04-09 07:18] LABS: Hematocrit (blood only) 37.2 % (37-47); Hemoglobin 11.9 g/dL (12.0-16.0); Mean Corpuscular Hemoglobin 28.5 pg (25-34); Mean Platelet Volume 10.1 fL (7.4-10.4); Platelet Count 257 K/uL (130-400); RDW Coefficient of Variation 13.9 % (11.5-14.5); RDW Standard Deviation 45.5 fL (36.4-46.3); Red Blood Count 4.18 M/uL (4.2-5.4); White Blood Count 7.58 K/uL (4.8-10.8)
[2020-04-09 07:26] LABS: Oxygen Saturation VBG 68.6 %; pH VBG 7.42 (7.36-7.41)
[2020-04-09 07:52] LABS: Albumin Level 2.7 gm/dl (3.4-5.0); BUN Creatinine Ratio 24.4 (10-20); Calcium 8.6 mg/dl (8.5-10.1); Creatinine Clr Calc Pharmacy 109.1 ml/min; Magnesium 2.3 mg/dl (1.8-2.4); Potassium 3.7 mmol/L (3.5-5.1)
[2020-04-09 07:55] LABS: Albumin Globulin Ratio 0.7 (0.9-2); Bilirubin,Total 0.9 mg/dl (0.2-1); Globulin 3.7 gm/dl (2.5-4.0); Total Protein 6.4 gm/dl (6.4-8.2)
[2020-04-09] MEDS: LOSARTAN POTASSIUM 50 MG TAB PO SCH (08:06)
[2020-04-09] MEDS: dexAMETHasone 6 MG in SYRINGE 0 ML IV SCH (08:08)
[2020-04-09] MEDS: buPROPion XL 300 MG TABCR PO SCH (08:09)
[2020-04-09] MEDS: AZITHROMYCIN 500 MG in DEXTROSE 5% 250 ML IV SCH (08:10)
--- NOTE | 2020-04-09 08:34 | XRay Report ---
XR chest 1V portable CLINICAL HISTORY: Covid; worsening hypoxemia COMPARISON STUDY: Chest radiograph and chest CT April 05, 2020. FINDINGS: No pneumothorax or pleural effusion is noted. Cardiomegaly is noted. Multifocal bilateral a irspace opacities have progressed since chest radiograph and chest CT April 05, 2020. IMPRESSION: Progression of multifocal bilateral airspace opacities consistent with an infectious pro cess. ACT 112: Negative or not required by law. Electronically signed by: Breezy Fu M.D. 04/09/2020 8:33 AM
--- NOTE | 2020-04-09 12:29 | Hospitalist Progress Note ---
Date of Service April 09, 2020 Assessment & Plan (1) Pneumonia due to COVID-19 virus: Initially diagnosed on 04/03/2020. - Convalescent plasma ordered - transfused on 04/06 - Continue remdesivir (End date: 04/09/2020) - Continue dexamethasone 6 mg IV daily (End date: 04/14/2020) - Stop CAP abx for negative procalcitonin on 04/09. - Supplemental O2 as needed -> Worsening today. Needing high-flow and looking more tired. pCO2 up slightly. (2) Acute respiratory failure with hypoxemia: See above (3) Elevated blood sugar: Blood sugar up to 221 on 04/06 while on steroids. - A1c was 5.8% on 04/07 - Monitor (4) Hepatitis: Abnormal LFTs on admission with AST/ALT at 140/130. Concern for viral hepatitis from Covid, though normal coagulation labs indicate acceptable hepatic function. - Follow serially for stability - Still elevated, though stable. (5) Hypertension: BP is 150/100 today. - Continue losartan (6) NITIN (generalized anxiety disorder): No acute inpatient needs today. - Continue bupropion (7) Dyslipidemia: - Continue simvastatin (8) DVT prophylaxis: Lovenox 60 mg SQ daily Admission and Anticipated Discharge Date Admission Date: April 05, 2020 Subjective More tired. Doesn't feel that much less shortness of breath. Coughed up some blood, but possibly from nasal passages as her nose has been stuffy from the high-flow. Reports no fevers/chills, chest pain, abdominal pain, nausea, or vomiting. Physical Exam Constitutional: WD/WN, vitals as above + acute distress and + obese Eyes: EOM intact bilaterally; no conjunctival abnormality ENMT: external ear and nose normal, oropharynx normal Neck: trachea midline, no thyromegaly normal visual inspection Respiratory: + labored breathing and + tachypneic; no respiratory distress Auscultation: + diminished lung sounds; no crackles Cardiovascular: RRR, no murmur, no edema Gastrointestinal (Abdomen): Inspection/Auscultation: abdomen normal to inspection; abdomen not distended Musculoskeletal: no cyanosis or clubbing, extremities motor strength 5/5 Skin: no rashes, warm and dry Neurologic: moves all extremities and awake Psychiatric: Orientation: alert, oriented to person and cooperative Results & Data Results & Data ([facility]) Vital Signs (Past 12 Hours) Vital Signs Temp Pulse Pulse Resp BP Pulse Ox 04/09/20 11:07 36.6 C 69 18 148/97 H 95 04/09/20 10:24 36.8 C 67 18 149/89 H 98 04/09/20 09:33 36.8 C 72 18 164/84 H 93 04/09/20 08:00 37.1 C 73 18 171/95 H 92 04/09/20 07:47 76 20 95 04/09/20 07:00 59 L 04/09/20 05:00 37.0 C 71 22 167/88 H 90 04/09/20 02:07 63 22 99 PG Care Time/CCT Total # of Minutes Spent Total Time Spent with Patient: Total time spent is greater than 50% in coordination of care (as documented) at patient's floor/unit and/or counseling patient: Coding Level of Care Code 73811 Subseq Hosp Care Lvl 3 Diagnoses Pneumonia due to COVID-19 virus U07.1; J12.89 Acute respiratory failure with hypoxemia J96.01 Elevated blood sugar R73.9 Hepatitis K75.9 Hypertension I10 NITIN (generalized anxiety disorder) F41.1 Dyslipidemia E78.5 DVT prophylaxis Z29.9
[2020-04-09] MEDS: ENOXAPARIN INJ 60 MG/0.6 ML SYR SQ SCH (21:41)
[2020-04-09] MEDS: REMDESIVIR 100 MG in SODIUM CHLORIDE 0.9% 230 ML IV SCH (21:41)
[2020-04-09] MEDS: SIMVASTATIN 20 MG TAB PO SCH (21:43)
[2020-04-09] MEDS: SODIUM CHLORIDE 0.9% 10ML FLUSH IV SCH (23:45)
[2020-04-10] MEDS: BENZONATATE 100 MG CAPSULE PO PRN (05:30)
[2020-04-10] MEDS: dexAMETHasone 6 MG in SYRINGE 0 ML IV SCH (08:13)
[2020-04-10] MEDS: LOSARTAN POTASSIUM 50 MG TAB PO SCH (08:14)
[2020-04-10] MEDS: buPROPion XL 300 MG TABCR PO SCH (08:16)
[2020-04-10] MEDS: ALBUTEROL HFA 8 GM INHALER INH PRN ×2 (08:25→11:31)
[2020-04-10 10:27] LABS: Base Excess VBG 7.3 mEq/L; Oxygen Saturation VBG 70.6 %; pH VBG 7.46 (7.36-7.41)
[2020-04-10] MEDS: guaiFENesin 600 MG TABCR PO SCH ×2 (11:47→20:47)
[2020-04-10 12:54] LABS: BUN Creatinine Ratio 20.1 (10-20); Calcium 8.7 mg/dl (8.5-10.1); Est GFR (African American) 98.3; Est GFR (Non-African American) 84.8
--- NOTE | 2020-04-10 15:38 | Hospitalist Progress Note ---
Date of Service April 10, 2020 Assessment & Plan (1) Pneumonia due to COVID-19 virus: Initially diagnosed on 04/03/2020. - Convalescent plasma ordered - transfused on 04/06 - Continue remdesivir (End date: 04/09/2020) - Continue dexamethasone 6 mg IV daily (End date: 04/14/2020) - Stopped CAP abx for negative procalcitonin on 04/09. - Supplemental O2 as needed -> Worsening today. Needing high-flow and looking more tired. pCO2 stable. Encouraged proning today which has been improving her breathing. Added guaifenesin. (2) Acute respiratory failure with hypoxemia: See above (3) Elevated blood sugar: Blood sugar up to 221 on 04/06 while on steroids. - A1c was 5.8% on 04/07 - Monitor (4) Hepatitis: Abnormal LFTs on admission with AST/ALT at 140/130. Concern for viral hepatitis from Covid, though normal coagulation labs indicate acceptable hepatic function. - Follow serially for stability - Still elevated, though stable. (5) Hypertension: BP is 150/80 today. - Continue losartan (6) NITIN (generalized anxiety disorder): No acute inpatient needs today. - Continue bupropion (7) Dyslipidemia: - Continue simvastatin (8) DVT prophylaxis: Lovenox 60 mg SQ daily Admission and Anticipated Discharge Date Admission Date: April 05, 2020 Subjective More tired. Is having more sputum coming up. Reports no fevers/chills, chest pain, abdominal pain, nausea, or vomiting. Physical Exam Constitutional: WD/WN, vitals as above + acute distress and + obese Eyes: EOM intact bilaterally; no conjunctival abnormality ENMT: external ear and nose normal, oropharynx normal Neck: trachea midline, no thyromegaly normal visual inspection Respiratory: normal respiratory effort, lungs clear to auscultation + labored breathing and + tachypneic; no respiratory distress Auscultation: + diminished lung sounds; no crackles Cardiovascular: RRR, no murmur, no edema Gastrointestinal (Abdomen): Inspection/Auscultation: abdomen normal to inspection; abdomen not distended Musculoskeletal: no cyanosis or clubbing, extremities motor strength 5/5 Skin: no rashes, warm and dry Neurologic: moves all extremities and awake Psychiatric: Orientation: alert, oriented to person and cooperative Results & Data Results & Data ([place]) Vital Signs (Past 12 Hours) Vital Signs Temp Pulse Pulse Resp BP Pulse Ox 04/10/20 14:15 36.8 C 76 18 154/83 H 93 04/10/20 11:32 84 20 91 04/10/20 11:30 36.8 C 84 18 147/79 H 95 04/10/20 08:35 36.7 C 88 18 159/82 H 95 04/10/20 08:25 85 24 92 04/10/20 07:00 78 04/10/20 06:04 73 24 94 04/10/20 05:38 30 H 91 04/10/20 05:31 32 H 92 04/10/20 05:28 75 90 04/10/20 05:20 85 32 H 85 L 04/10/20 04:00 162/85 H PG Care Time/CCT Total # of Minutes Spent Total Time Spent with Patient: Total time spent is greater than 50% in coordination of care (as documented) at patient's floor/unit and/or counseling patient: Coding Level of Care Code 31770 Subseq Hosp Care Lvl 3 Diagnoses Pneumonia due to COVID-19 virus U07.1; J12.89 Acute respiratory failure with hypoxemia J96.01 Elevated blood sugar R73.9 Hepatitis K75.9 Hypertension I10 NITIN (generalized anxiety disorder) F41.1 Dyslipidemia E78.5 DVT prophylaxis Z29.9
[2020-04-10] MEDS ORDERED: FUROSEMIDE 20 MG in SYRINGE 0 ML IV ONE (16:15)
[2020-04-10] MEDS: ENOXAPARIN INJ 60 MG/0.6 ML SYR SQ SCH (20:46)
[2020-04-10] MEDS: SIMVASTATIN 20 MG TAB PO SCH (20:47)
[2020-04-11] MEDS: ACETAMINOPHEN 325 MG TAB PO PRN (01:44)
[2020-04-11 07:00] LABS: BUN Creatinine Ratio 27.3 (10-20); Calcium 8.9 mg/dl (8.5-10.1); Creatinine Clr Calc Pharmacy 114.3 ml/min; Est GFR (African American) 110.6; Est GFR (Non-African American) 95.5; Magnesium 2.2 mg/dl (1.8-2.4); Potassium 3.6 mmol/L (3.5-5.1)
[2020-04-11 07:07] LABS: Base Excess VBG 8.4 mEq/L; Oxygen Saturation VBG 72.8 %; pH VBG 7.45 (7.36-7.41)
[2020-04-11 08:06] LABS: Hematocrit (blood only) 39.2 % (37-47); Hemoglobin 12.1 g/dL (12.0-16.0); Mean Corpuscular Hemoglobin 27.6 pg (25-34); Mean Corpuscular Hgb Conc 30.9 g/dL (32-36); Mean Corpuscular Volume 89.5 fL (80-100); Mean Platelet Volume 10.2 fL (7.4-10.4); Platelet Count 204 K/uL (130-400); RDW Coefficient of Variation 13.9 % (11.5-14.5); Red Blood Count 4.38 M/uL (4.2-5.4); White Blood Count 9.36 K/uL (4.8-10.8)
[2020-04-11] MEDS: dexAMETHasone 6 MG in SYRINGE 0 ML IV SCH (08:24)
[2020-04-11] MEDS: guaiFENesin 600 MG TABCR PO SCH ×2 (08:24→20:00)
[2020-04-11] MEDS: LOSARTAN POTASSIUM 50 MG TAB PO SCH (08:25)
[2020-04-11] MEDS: buPROPion XL 300 MG TABCR PO SCH (08:25)
[2020-04-11] MEDS: NYSTATIN SUSP 500,000 U/5 ML UDC PO SCH ×3 (08:42→20:01)
[2020-04-11] MEDS: ENOXAPARIN INJ 60 MG/0.6 ML SYR SQ SCH (19:55)
[2020-04-11] MEDS: SIMVASTATIN 20 MG TAB PO SCH (20:00)
--- NOTE | 2020-04-11 20:27 | Hospitalist Progress Note ---
Date of Service April 11, 2020 Assessment & Plan (1) Pneumonia due to COVID-19 virus: Initially diagnosed on 04/03/2020. - Convalescent plasma ordered - transfused on 04/06 - Finished on remdesivir (End date: 04/09/2020) - Continue dexamethasone 6 mg IV daily (End date: 04/14/2020) - Stopped CAP abx for negative procalcitonin on 04/09. - Supplemental O2 as needed -> continues to require high flow Cannot tolerate proning but has been leaning forward with her head down on the bed while si tting. (2) Acute respiratory failure with hypoxemia: See above (3) Elevated blood sugar: Blood sugar up to 221 on 04/06 while on steroids. - A1c was 5.8% on 04/07 - Monitor (4) Hepatitis: Abnormal LFTs on admission with AST/ALT at 140/130. Concern for viral hepatitis from Covid, though normal coagulation labs indicate acceptable hepatic function. - Follow serially for stability - Still elevated, though stable. (5) Hypertension: BP is 150/80 today. - Continue losartan (6) NITIN (generalized anxiety disorder): No acute inpatient needs today. - Continue bupropion (7) Dyslipidemia: - Continue simvastatin (8) DVT prophylaxis: Lovenox 60 mg SQ daily Admission and Anticipated Discharge Date Admission Date: April 05, 2020 Subjective Patient reports feeling mildly better. She reports having intermittent cough. She is still requiring high flow oxygen. Review of Systems Review of Systems: All systems reviewed & are unremarkable except as noted in HPI & below Physical Exam Physical Exam: Constitutional: WD/WN, vitals as above + obese Eyes: EOM intact bilaterally; no conjunctival abnormality ENMT: external ear and nose normal, oropharynx normal Neck: trachea midline, no thyromegaly normal visual inspection Respiratory: normal respiratory effort; no respiratory distress Auscultation: + diminished lung sounds; no crackles Cardiovascular: RRR, no murmur, no edema Gastrointestinal (Abdomen): Inspection/Auscultation: abdomen normal to inspection; abdomen not distended Musculoskeletal: no cyanosis or clubbing, extremities motor strength 5/5 Skin: no rashes, warm and dry Neurologic: moves all extremities and awake Psychiatric: Orientation: alert, oriented to person and cooperative Results & Data Results & Data ([facility]) Vital Signs (Past 12 Hours) Vital Signs Temp Pulse Resp BP Pulse Ox 04/11/20 19:20 72 20 91 04/11/20 18:37 36.9 C 75 18 124/76 95 04/11/20 17:34 97 04/11/20 15:39 76 20 96 04/11/20 14:07 36.8 C 78 18 122/78 96 04/11/20 12:09 76 20 91 04/11/20 11:00 37.1 C 71 18 124/77 92 PG Care Time/CCT Total # of Minutes Spent Total Time Spent with Patient: Total time spent is greater than 50% in coordination of care (as documented) at patient's floor/unit and/or counseling patient: Coding Level of Care Code 19208 Subseq Hosp Care Lvl 3 Diagnoses Pneumonia due to COVID-19 virus U07.1; J12.89 Acute respiratory failure with hypoxemia J96.01 Elevated blood sugar R73.9 Hepatitis K75.9 Hypertension I10 NITIN (generalized anxiety disorder) F41.1 Dyslipidemia E78.5 DVT prophylaxis Z29.9 Time Spent (min) 35
[2020-04-12] MEDS: NYSTATIN SUSP 500,000 U/5 ML UDC PO SCH ×3 (09:07→20:37)
[2020-04-12] MEDS: guaiFENesin 600 MG TABCR PO SCH ×2 (09:07→20:37)
[2020-04-12] MEDS: buPROPion XL 300 MG TABCR PO SCH (09:08)
[2020-04-12] MEDS: dexAMETHasone 6 MG in SYRINGE 0 ML IV SCH (09:08)
[2020-04-12] MEDS: LOSARTAN POTASSIUM 50 MG TAB PO SCH (09:08)
[2020-04-12] MEDS: ENOXAPARIN INJ 60 MG/0.6 ML SYR SQ SCH (20:37)
[2020-04-12] MEDS: SIMVASTATIN 20 MG TAB PO SCH (20:38)
--- NOTE | 2020-04-12 22:47 | Hospitalist Progress Note ---
Date of Service April 12, 2020 Assessment & Plan (1) Pneumonia due to COVID-19 virus: Initially diagnosed on 04/03/2020. - Convalescent plasma ordered - transfused on 04/06 - Finished on remdesivir (End date: 04/09/2020) - Continue dexamethasone 6 mg IV daily (End date: 04/14/2020) - Stopped CAP abx for negative procalcitonin on 04/09. - Supplemental O2 as needed -> continues to require high flow Cannot tolerate proning but has been leaning forward with her head down on the bed while si tting. -no siginficant change. -required a PPE to examine patient due to lobal pandemic. (2) Acute respiratory failure with hypoxemia: See above (3) Elevated blood sugar: Blood sugar up to 221 on 04/06 while on steroids. - A1c was 5.8% on 04/07 - Monitor (4) Hepatitis: Abnormal LFTs on admission with AST/ALT at 140/130. Concern for viral hepatitis from Covid, though normal coagulation labs indicate acceptable hepatic function. - Follow serially for stability - Still elevated, though stable. (5) Hypertension: BP at goal. - Continue losartan (6) NITIN (generalized anxiety disorder): No acute inpatient needs today. - Continue bupropion (7) Dyslipidemia: - Continue simvastatin (8) DVT prophylaxis: Lovenox 60 mg SQ daily Admission and Anticipated Discharge Date Admission Date: April 05, 2020 Subjective Patient reports no significant change today. Review of Systems Review of Systems: All systems reviewed & are unremarkable except as noted in HPI & below Physical Exam Physical Exam: Constitutional: WD/WN, vitals as above + obese Eyes: EOM intact bilaterally; no conjunctival abnormality ENMT: external ear and nose normal, oropharynx normal Neck: trachea midline, no thyromegaly normal visual inspection Respiratory: normal respiratory effort; no respiratory distress Auscultation: + diminished lung sounds; no crackles Cardiovascular: RRR, no murmur, no edema Gastrointestinal (Abdomen): Inspection/Auscultation: abdomen normal to inspection; abdomen not distended Musculoskeletal: no cyanosis or clubbing, extremities motor strength 5/5 Skin: no rashes, warm and dry Neurologic: moves all extremities and awake Psychiatric: Orientation: alert, oriented to person and cooperative Results & Data Results & Data ([facility]) Vital Signs (Past 12 Hours) Vital Signs Temp Pulse Pulse Resp BP BP Pulse Ox 04/12/20 22:22 77 20 91 04/12/20 20:11 73 18 97 04/12/20 19:10 37.3 C 77 16 117/68 91 04/12/20 19:08 76 16 96 04/12/20 16:00 81 04/12/20 14:44 37.2 C 76 20 109/67 93 04/12/20 11:24 37.1 C 76 20 108/68 96 PG Care Time/CCT Total # of Minutes Spent Total Time Spent with Patient: Total time spent is greater than 50% in coordination of care (as documented) at patient's floor/unit and/or counseling patient: Coding Level of Care Code 01288 Subseq Hosp Care Lvl 3 Diagnoses Pneumonia due to COVID-19 virus U07.1; J12.89 Acute respiratory failure with hypoxemia J96.01 Elevated blood sugar R73.9 Hepatitis K75.9 Hypertension I10 NITIN (generalized anxiety disorder) F41.1 Dyslipidemia E78.5 DVT prophylaxis Z29.9
[2020-04-13] MEDS: buPROPion XL 300 MG TABCR PO SCH (09:37)
[2020-04-13] MEDS: dexAMETHasone 6 MG in SYRINGE 0 ML IV SCH (09:37)
[2020-04-13] MEDS: LOSARTAN POTASSIUM 50 MG TAB PO SCH (09:37)
[2020-04-13] MEDS: guaiFENesin 600 MG TABCR PO SCH ×2 (09:37→19:37)
[2020-04-13] MEDS: NYSTATIN SUSP 500,000 U/5 ML UDC PO SCH ×3 (09:37→19:37)
--- NOTE | 2020-04-13 17:17 | XRay Report ---
XR chest 1V portable HISTORY: 65 years-old Female hypoxia acute hypoxia COMPARISON: Chest radiograph 04/10/2020, CTA chest 04/05/2020 TECHNIQUE: Portable AP view of the chest FINDINGS: Patient is rotated. Cardiac silhouette is enlarged. Multifocal bilateral patchy airspace opacities ar e redemonstrated and have mildly improved within the left lung. There may be mild progression from th e bilateral upper lung zone distributions. Blunting of the costophrenic angles may be secondary to ai rspace disease versus trace effusions. No pneumothorax. Degenerative changes of the shoulders and spi ne. IMPRESSION: Persistent multifocal bilateral airspace opacities compatible with ongoing pneumonia. ACT 112: Negative or not required by law. The above report was generated using voice recognition software. It may contain grammatical, syntax o r spelling errors. Electronically signed by: Mario Matias M.D. 04/13/2020 5:16 PM
[2020-04-13] MEDS: ENOXAPARIN INJ 60 MG/0.6 ML SYR SQ SCH (19:37)
[2020-04-13] MEDS: SIMVASTATIN 20 MG TAB PO SCH (19:37)
[2020-04-13] MEDS: DOCUSATE SODIUM/SENNA 50/8.6MG TAB PO SCH (19:38)
[2020-04-13] MEDS ORDERED: ALUMINUM/MAGNESIUM SUSP 30 ML UDC PO PRN (23:29)
--- NOTE | 2020-04-14 07:31 | Hospitalist Progress Note ---
Date of Service April 13, 2020 Assessment & Plan (1) Pneumonia due to COVID-19 virus: Despite subjectively feeling better, patient is still requiring a large amount of oxygen. Repeated imgaing which continues to show patchy infiltrates, will repeat labs in the AM and consider diuretics. This was initially diagnosed on 04/03/2020. - Convalescent plasma ordered - transfused on 04/06 - Finished remdesivir (End date: 04/09/2020) - Continue dexamethasone 6 mg IV daily (End date: 04/14/2020) - Stopped CAP abx for negative procalcitonin on 04/09. - Supplemental O2 as needed -> continues to require high flow Cannot tolerate proning but has been leaning forward with her head down on the bed while sitting. -required a PPE to examine patient due to global pandemic. -recommended patient to prone more. (2) Acute respiratory failure with hypoxemia: See above (3) Elevated blood sugar: Blood sugar up to 221 on 04/06 while on steroids. - A1c was 5.8% on 04/07 - Monitor (4) Hepatitis: Abnormal LFTs on admission with AST/ALT at 140/130. Concern for viral hepatitis from Covid, though normal coagulation labs indicate acceptable hepatic function. - Follow serially for stability - Still elevated, though stable. (5) Hypertension: BP at goal. - Continue losartan (6) NITIN (generalized anxiety disorder): No acute inpatient needs today. - Continue bupropion (7) Dyslipidemia: - Continue simvastatin (8) DVT prophylaxis: Lovenox 60 mg SQ daily Admission and Anticipated Discharge Date Admission Date: April 05, 2020 Subjective Patient reports feeling better today. She states each day she is breathing a little bit better. She reports only "proning" about 40 minutes a day. Review of Systems Review of Systems: All systems reviewed & are unremarkable except as noted in HPI & below Physical Exam Physical Exam: Constitutional: WD/WN, vitals as above + obese Eyes: EOM intact bilaterally; no conjunctival abnormality ENMT: external ear and nose normal, oropharynx normal Neck: trachea midline, no thyromegaly normal visual inspection Respiratory: normal respiratory effort; no respiratory distress Auscultation: + diminished lung sounds; no crackles Cardiovascular: RRR, no murmur, no edema Gastrointestinal (Abdomen): Inspection/Auscultation: abdomen normal to inspection; abdomen not distended Musculoskeletal: no cyanosis or clubbing, extremities motor strength 5/5 Skin: no rashes, warm and dry Neurologic: moves all extremities and awake Psychiatric: Orientation: alert, oriented to person and cooperative Results & Data Results & Data ([facility]) Vital Signs (Past 12 Hours) Vital Signs Temp Pulse Pulse Resp BP Pulse Ox Pulse Ox 04/14/20 07:28 63 04/14/20 04:00 36.8 C 69 18 92 04/14/20 02:15 78 18 92 04/14/20 01:09 74 04/14/20 01:07 93 04/14/20 00:00 37.0 C 71 18 125/76 96 04/13/20 23:21 73 20 92 04/13/20 21:04 75 20 94 PG Care Time/CCT Total # of Minutes Spent Total Time Spent with Patient: Total time spent is greater than 50% in coordination of care (as documented) at patient's floor/unit and/or counseling patient: Coding Level of Care Code 20991 Subseq Hosp Care Lvl 3 Diagnoses Pneumonia due to COVID-19 virus U07.1; J12.89 Acute respiratory failure with hypoxemia J96.01 Elevated blood sugar R73.9 Hepatitis K75.9 Hypertension I10 NITIN (generalized anxiety disorder) F41.1 Dyslipidemia E78.5 DVT prophylaxis Z29.9
[2020-04-14] MEDS: NYSTATIN SUSP 500,000 U/5 ML UDC PO SCH ×3 (08:26→20:48)
[2020-04-14] MEDS: buPROPion XL 300 MG TABCR PO SCH (08:26)
[2020-04-14] MEDS: LOSARTAN POTASSIUM 50 MG TAB PO SCH (08:26)
[2020-04-14] MEDS: guaiFENesin 600 MG TABCR PO SCH ×2 (08:27→20:48)
[2020-04-14] MEDS: dexAMETHasone 6 MG in SYRINGE 0 ML IV SCH (08:27)
[2020-04-14] MEDS: DOCUSATE SODIUM/SENNA 50/8.6MG TAB PO SCH (08:27)
[2020-04-14 08:44] LABS: Basophils # (auto) 0.01 K/uL (0-0.2); Basophils % (auto) 0.1 %; Eosinophils # (auto) 0.11 K/uL (0-0.5); Hemoglobin 12.6 g/dL (12.0-16.0); Immature Granulocytes # (auto) 0.16 K/uL (0.00-0.02); Immature Granulocytes % (auto) 1.5 %; Lymphocytes # (auto) 1.04 K/uL (1.2-3.4); Lymphocytes % (auto) 9.8 %; Mean Corpuscular Hemoglobin 28.2 pg (25-34); Mean Corpuscular Hgb Conc 31.5 g/dL (32-36); Mean Corpuscular Volume 89.5 fL (80-100); Mean Platelet Volume 10.6 fL (7.4-10.4); Monocytes # (auto) 0.72 K/uL (0.11-0.59); Monocytes % (auto) 6.8 %; Neutrophils # (auto) 8.62 K/uL (1.4-6.5); Neutrophils % (auto) 80.8 %; Platelet Count 222 K/uL (130-400); RDW Coefficient of Variation 14.2 % (11.5-14.5); RDW Standard Deviation 46.5 fL (36.4-46.3); Red Blood Count 4.47 M/uL (4.2-5.4); White Blood Count 10.66 K/uL (4.8-10.8)
[2020-04-14 09:50] LABS: BUN Creatinine Ratio 25.2 (10-20); Calcium 9.2 mg/dl (8.5-10.1); Creatinine Clr Calc Pharmacy 94.7 ml/min; Est GFR (African American) 98.3; Est GFR (Non-African American) 84.8; Potassium 4.1 mmol/L (3.5-5.1)
[2020-04-14] MEDS ORDERED: FUROSEMIDE 20 MG in SYRINGE 0 ML IV ONE (10:30)
[2020-04-14] MEDS: ENOXAPARIN INJ 60 MG/0.6 ML SYR SQ SCH (20:48)
[2020-04-14] MEDS: SIMVASTATIN 20 MG TAB PO SCH (20:49)
--- NOTE | 2020-04-14 22:07 | Hospitalist Progress Note ---
Date of Service April 14, 2020 Assessment & Plan (1) Pneumonia due to COVID-19 virus: Despite subjectively feeling better, patient is still requiring a large amount of oxygen. Repeated imaging which continues to show patchy infiltrates, ordered one time dose of lasix to see if this helps with her oxygen requirements. This was initially diagnosed on 04/03/2020. - Convalescent plasma ordered - transfused on 04/06 - Finished remdesivir (End date: 04/09/2020) - Continue dexamethasone 6 mg IV daily (End date: 04/14/2020) - Stopped CAP abx for negative procalcitonin on 04/09. - Supplemental O2 as needed -> continues to require high flow Cannot tolerate proning but has been leaning forward with her head down on the bed while sitting. -required a PPE to examine patient due to global pandemic. -recommended patient to prone more for about at least 2 hours a day. Actually will prefer her to prone for 12 hours as this was stated to patient earlier in the week. At this point, anticipate a slow recovery. If patient continues to require high flow oxygen, she may be a candidate for a correction care facility. (2) Acute respiratory failure with hypoxemia: See above (3) Elevated blood sugar: Blood sugar up to 221 on 04/06 while on steroids. - A1c was 5.8% on 04/07 - Monitor (4) Hepatitis: Abnormal LFTs on admission with AST/ALT at 140/130. Concern for viral hepatitis from Covid, though normal coagulation labs indicate acceptable hepatic function. - Follow serially for stability - Still elevated, though stable. (5) Hypertension: BP at goal. - Continue losartan (6) NITIN (generalized anxiety disorder): No acute inpatient needs today. - Continue bupropion (7) Dyslipidemia: - Continue simvastatin (8) DVT prophylaxis: Lovenox 60 mg SQ daily Admission and Anticipated Discharge Date Admission Date: April 05, 2020 Subjective Patient reports she continues to have a cough bringing up sputum. She states though that she is breathing well and has no discomfort. She reports proning but only about 20 minutes every 12 hours. Review of Systems Review of Systems: All systems reviewed & are unremarkable except as noted in HPI & below Physical Exam Physical Exam: Constitutional: WD/WN, vitals as above + obese Eyes: EOM intact bilaterally; no conjunctival abnormality ENMT: external ear and nose normal, oropharynx normal Neck: trachea midline, no thyromegaly normal visual inspection Respiratory: normal respiratory effort; no respiratory distress Auscultation: + diminished lung sounds; no wheezing. Cardiovascular: RRR, no murmur, no edema Gastrointestinal (Abdomen): Inspection/Auscultation: abdomen normal to inspection; abdomen not distended Musculoskeletal: no cyanosis or clubbing, extremities motor strength 5/5 Skin: no rashes, warm and dry Neurologic: moves all extremities and awake Psychiatric: Orientation: alert, oriented to person and cooperative Results & Data Results & Data ([facility]) Vital Signs (Past 12 Hours) Vital Signs Temp Pulse Pulse Resp BP Pulse Ox 04/14/20 20:01 37.1 C 77 20 123/74 94 04/14/20 16:15 78 20 94 04/14/20 16:00 36.8 C 81 93 H 22 124/76 93 04/14/20 11:28 82 20 90 04/14/20 10:49 36.9 C 88 20 115/66 90 PG Care Time/CCT Total # of Minutes Spent Total Time Spent with Patient: Total time spent is greater than 50% in coordination of care (as documented) at patient's floor/unit and/or counseling patient: Coding Level of Care Code 28774 Subseq Hosp Care Lvl 3 Diagnoses Pneumonia due to COVID-19 virus U07.1; J12.89 Acute respiratory failure with hypoxemia J96.01 Elevated blood sugar R73.9 Hepatitis K75.9 Hypertension I10 NITIN (generalized anxiety disorder) F41.1 Dyslipidemia E78.5 DVT prophylaxis Z29.9 Time Spent (min) 35
[2020-04-15] MEDS: dexAMETHasone 6 MG in SYRINGE 0 ML IV SCH (07:57)
[2020-04-15] MEDS: DOCUSATE SODIUM/SENNA 50/8.6MG TAB PO SCH (07:58)
[2020-04-15] MEDS: guaiFENesin 600 MG TABCR PO SCH ×2 (07:58→21:12)
[2020-04-15] MEDS: buPROPion XL 300 MG TABCR PO SCH (07:58)
[2020-04-15] MEDS: LOSARTAN POTASSIUM 50 MG TAB PO SCH (07:58)
[2020-04-15] MEDS: NYSTATIN SUSP 500,000 U/5 ML UDC PO SCH ×3 (07:58→21:11)
[2020-04-15 11:25] LABS: Hematocrit (blood only) 40.3 % (37-47); Hemoglobin 12.6 g/dL (12.0-16.0); Mean Corpuscular Hemoglobin 27.8 pg (25-34); Mean Corpuscular Hgb Conc 31.3 g/dL (32-36); Mean Platelet Volume 10.5 fL (7.4-10.4); Platelet Count 196 K/uL (130-400); RDW Coefficient of Variation 14.2 % (11.5-14.5); RDW Standard Deviation 46.3 fL (36.4-46.3); Red Blood Count 4.53 M/uL (4.2-5.4); White Blood Count 16.44 K/uL (4.8-10.8)
[2020-04-15 12:13] LABS: BUN Creatinine Ratio 23.9 (10-20); Calcium 9.2 mg/dl (8.5-10.1); Est GFR (African American) 71.2; Est GFR (Non-African American) 61.4
[2020-04-15 14:11] LABS: Potassium 4.4 mmol/L (3.5-5.1)
--- NOTE | 2020-04-15 20:48 | Hospitalist Progress Note ---
Date of Service April 15, 2020 Assessment & Plan (1) Pneumonia due to COVID-19 virus: Despite subjectively feeling better, patient is still requiring a large amount of oxygen. Repeated imaging which continues to show patchy infiltrates, ordered one time dose of lasix to see if this helps with her oxygen requirements. This was initially diagnosed on 04/03/2020. - Convalescent plasma ordered - transfused on 04/06 - Finished remdesivir (End date: 04/09/2020) - Continue dexamethasone 6 mg IV daily (End date: 04/14/2020) had extra dose on 04/15 - Stopped CAP abx for negative procalcitonin on 04/09. - Supplemental O2 as needed -> continues to require high flow -required a PPE to examine patient due to global pandemic. -recommended patient to prone more for about at least 2 hours a day. Actually will prefer her to prone for 12 hours as this was stated to patient earlier in the week. -Patient made headway with proning today as she will prone for 2 hours, also oxygen requirement decreased from 40 l/min to 30 l/min -FIO2 ratio improved from 80 to 70% At this point, anticipate a slow recovery. If patient continues to require high flow oxygen, she may be a candidate for a intermediate care facility. (2) Acute respiratory failure with hypoxemia: See above (3) Elevated blood sugar: Blood sugar up to 221 on 04/06 while on steroids. - A1c was 5.8% on 04/07 - Monitor (4) Hepatitis: Abnormal LFTs on admission with AST/ALT at 140/130. Concern for viral hepatitis from Covid, though normal coagulation labs indicate acceptable hepatic function. - Follow serially for stability - Still elevated, though stable. (5) Hypertension: BP at goal. - Continue losartan (6) NITIN (generalized anxiety disorder): No acute inpatient needs today. - Continue bupropion (7) Dyslipidemia: - Continue simvastatin (8) DVT prophylaxis: Lovenox 60 mg SQ daily Admission and Anticipated Discharge Date Admission Date: April 05, 2020 Subjective Patient reports proning for 90 minutes today. She will try again later today. She coughed up about 5 teaspoons of clear, yellow sputum this AM. She is upbeat and states that she is breathing better. Review of Systems Review of Systems: All systems reviewed & are unremarkable except as noted in HPI & below Physical Exam Physical Exam: Constitutional: WD/WN, vitals as above + obese Eyes: EOM intact bilaterally; no conjunctival abnormality ENMT: external ear and nose normal, oropharynx normal Neck: trachea midline, no thyromegaly normal visual inspection Respiratory: normal respiratory effort; no respiratory distress Auscultation: + diminished lung sounds; no wheezing. Cardiovascular: RRR, no murmur, no edema Gastrointestinal (Abdomen): Inspection/Auscultation: abdomen normal to inspection; abdomen not distended Musculoskeletal: no cyanosis or clubbing, extremities motor strength 5/5 Skin: no rashes, warm and dry Neurologic: moves all extremities and awake Psychiatric: Orientation: alert, oriented to person and cooperative Results & Data Results & Data ([facility]) Vital Signs (Past 12 Hours) Vital Signs Pulse Resp BP Pulse Ox 04/15/20 20:28 68 20 94 04/15/20 16:47 74 20 118/62 94 04/15/20 15:14 76 20 92 04/15/20 11:17 76 18 92 PG Care Time/CCT Total # of Minutes Spent Total Time Spent with Patient: Total time spent is greater than 50% in coordination of care (as documented) at patient's floor/unit and/or counseling patient: Coding Level of Care Code 12980 Subseq Hosp Care Lvl 2 Diagnoses Pneumonia due to COVID-19 virus U07.1; J12.89 Acute respiratory failure with hypoxemia J96.01 Elevated blood sugar R73.9 Hepatitis K75.9 Hypertension I10 NIITN (generalized anxiety disorder) F41.1 Dyslipidemia E78.5 DVT prophylaxis Z29.9
[2020-04-15] MEDS: ENOXAPARIN INJ 60 MG/0.6 ML SYR SQ SCH (21:10)
[2020-04-15] MEDS: SIMVASTATIN 20 MG TAB PO SCH (21:11)
[2020-04-16 08:02] LABS: Hematocrit (blood only) 40.1 % (37-47); Hemoglobin 12.4 g/dL (12.0-16.0); Mean Corpuscular Hemoglobin 27.7 pg (25-34); Mean Corpuscular Hgb Conc 30.9 g/dL (32-36); Mean Corpuscular Volume 89.7 fL (80-100); Mean Platelet Volume 10.6 fL (7.4-10.4); Platelet Count 181 K/uL (130-400); RDW Coefficient of Variation 14.2 % (11.5-14.5); RDW Standard Deviation 46.9 fL (36.4-46.3); Red Blood Count 4.47 M/uL (4.2-5.4); White Blood Count 10.99 K/uL (4.8-10.8)
[2020-04-16 08:29] LABS: BUN Creatinine Ratio 29.4 (10-20); Calcium 9.4 mg/dl (8.5-10.1); Creatinine Clr Calc Pharmacy 102.3 ml/min; Est GFR (African American) 107.4; Est GFR (Non-African American) 92.6; Potassium 4.2 mmol/L (3.5-5.1)
[2020-04-16] MEDS: NYSTATIN SUSP 500,000 U/5 ML UDC PO SCH ×3 (08:54→20:10)
[2020-04-16] MEDS: buPROPion XL 300 MG TABCR PO SCH (08:55)
[2020-04-16] MEDS: DOCUSATE SODIUM/SENNA 50/8.6MG TAB PO SCH (08:55)
[2020-04-16] MEDS: LOSARTAN POTASSIUM 50 MG TAB PO SCH (08:55)
[2020-04-16] MEDS: guaiFENesin 600 MG TABCR PO SCH ×2 (08:55→20:10)
--- NOTE | 2020-04-16 12:50 | Hospitalist Progress Note ---
Date of Service April 16, 2020 Assessment & Plan (1) Pneumonia due to COVID-19 virus: Initially diagnosed on 04/03/2020. - Convalescent plasma ordered - transfused on 04/06 - Finished remdesivir (End date: 04/09/2020) - Finished dexamethasone 6 mg IV daily (End date: 04/14/2020) - Stopped CAP abx for negative procalcitonin on 04/09. - Supplemental O2 as needed -> Stable today; possibly improving. (2) Acute respiratory failure with hypoxemia: See above (3) Elevated blood sugar: Blood sugar up to 221 on 04/06 while on steroids. - A1c was 5.8% on 04/07 - Monitor (4) Hepatitis: Abnormal LFTs on admission with AST/ALT at 140/130. Concern for viral hepatitis from Covid, though normal coagulation labs indicate acceptable hepatic function. - Follow serially for stability - Still elevated, though improving. Down to 88/136 on 04/09. (5) Hypertension: BP is 110/80 today. - Continue losartan (6) NITIN (generalized anxiety disorder): No acute inpatient needs today. - Continue bupropion (7) Dyslipidemia: - Continue simvastatin (8) DVT prophylaxis: Lovenox 60 mg SQ daily Admission and Anticipated Discharge Date Admission Date: April 05, 2020 Subjective Still no BM today. Reports no fevers/chills, chest pain, abdominal pain, nausea, or vomiting. Physical Exam Constitutional: WD/WN, vitals as above + acute distress and + obese Eyes: EOM intact bilaterally; no conjunctival abnormality ENMT: external ear and nose normal, oropharynx normal Neck: trachea midline, no thyromegaly normal visual inspection Respiratory: normal respiratory effort, lungs clear to auscultation + labored breathing and + tachypneic; no respiratory distress Auscultation: + diminished lung sounds; no crackles Cardiovascular: RRR, no murmur, no edema Gastrointestinal (Abdomen): Inspection/Auscultation: abdomen normal to inspection; abdomen not distended Musculoskeletal: no cyanosis or clubbing, extremities motor strength 5/5 Skin: no rashes, warm and dry Neurologic: moves all extremities and awake Psychiatric: Orientation: alert, oriented to person and cooperative Results & Data Results & Data ([facility]) Vital Signs (Past 12 Hours) Vital Signs Temp Pulse Pulse Resp BP BP Pulse Ox 04/16/20 12:10 79 18 91 12/13/20 11:22 37.0 C 74 18 108/72 95 04/16/20 08:59 109/67 04/16/20 08:08 36.8 C 71 18 100/61 90 04/16/20 08:07 77 18 87 L 04/16/20 07:42 77 04/16/20 02:43 76 04/16/20 02:21 72 18 92 PG Care Time/CCT Total # of Minutes Spent Total Time Spent with Patient: Total time spent is greater than 50% in coordination of care (as documented) at patient's floor/unit and/or counseling patient: Coding Level of Care Code 40439 Subseq Hosp Care Lvl 2 Diagnoses Pneumonia due to COVID-19 virus U07.1; J12.89 Acute respiratory failure with hypoxemia J96.01 Elevated blood sugar R73.9 Hepatitis K75.9 Hypertension I10 NITIN (generalized anxiety disorder) F41.1 Dyslipidemia E78.5 DVT prophylaxis Z29.9
[2020-04-16] MEDS: DOCUSATE SODIUM 100 MG CAP PO SCH ×2 (14:10→20:11)
[2020-04-16] MEDS ORDERED: MICONAZOLE NITRATE POWDER 43 GM EXT PRN (16:23)
[2020-04-16] MEDS: ENOXAPARIN INJ 60 MG/0.6 ML SYR SQ SCH (20:10)
[2020-04-16] MEDS: SIMVASTATIN 20 MG TAB PO SCH (20:10)
[2020-04-17] MEDS: ACETAMINOPHEN 325 MG TAB PO PRN (01:52)
[2020-04-17 07:26] LABS: Hematocrit (blood only) 37.7 % (37-47); Hemoglobin 11.9 g/dL (12.0-16.0); Mean Corpuscular Hemoglobin 28.3 pg (25-34); Mean Corpuscular Hgb Conc 31.6 g/dL (32-36); Mean Corpuscular Volume 89.8 fL (80-100); Platelet Count 174 K/uL (130-400); RDW Coefficient of Variation 14.4 % (11.5-14.5); RDW Standard Deviation 47.1 fL (36.4-46.3)
[2020-04-17 07:51] LABS: Albumin Level 2.6 gm/dl (3.4-5.0); BUN Creatinine Ratio 26.6 (10-20); Est GFR (African American) 98.3; Est GFR (Non-African American) 84.8; Magnesium 2.4 mg/dl (1.8-2.4); Potassium 4.4 mmol/L (3.5-5.1)
[2020-04-17 07:54] LABS: Albumin Globulin Ratio 0.7 (0.9-2); Bilirubin,Total 1.1 mg/dl (0.2-1); Globulin 3.8 gm/dl (2.5-4.0); Total Protein 6.4 gm/dl (6.4-8.2)
--- NOTE | 2020-04-17 09:48 | XRay Report ---
SINGLE VIEW CHEST CLINICAL HISTORY: Covid pneumonia. FINDINGS: An AP, portable, upright chest radiograph is compared to study dated 04/13/2020. The examin ation is degraded by portable technique, patient rotation, and large body habitus. The heart is top n ormal for projection. Diffuse bilateral airspace consolidation has not significantly changed from 02/2020. No large pleural effusion or pneumothorax is identified. The skeletal structures are osteope kellen. The bony thorax is grossly intact. IMPRESSION: Diffuse/multifocal bilateral airspace consolidation has not significantly changed from . ACT 112: Negative or not required by law. Electronically signed by: Stuart Martínez M.D. 04/17/2020 9:46 AM
[2020-04-17] MEDS: NYSTATIN SUSP 500,000 U/5 ML UDC PO SCH ×3 (09:52→21:24)
[2020-04-17] MEDS: DOCUSATE SODIUM 100 MG CAP PO SCH ×2 (09:52→21:23)
[2020-04-17] MEDS: guaiFENesin 600 MG TABCR PO SCH ×2 (09:52→21:23)
[2020-04-17] MEDS: DOCUSATE SODIUM/SENNA 50/8.6MG TAB PO SCH (09:52)
[2020-04-17] MEDS: LOSARTAN POTASSIUM 50 MG TAB PO SCH (09:53)
[2020-04-17] MEDS: buPROPion XL 300 MG TABCR PO SCH (09:53)
--- NOTE | 2020-04-17 12:36 | Hospitalist Progress Note ---
Date of Service April 17, 2020 Assessment & Plan (1) Pneumonia due to COVID-19 virus: Initially diagnosed on 04/03/2020. - Convalescent plasma ordered - transfused on 04/06 - Finished remdesivir (End date: 04/09/2020) - Finished dexamethasone 6 mg IV daily (End date: 04/14/2020) - Stopped CAP abx for negative procalcitonin on 04/09. - Supplemental O2 as needed -> Improving today. (2) Acute respiratory failure with hypoxemia: See above (3) Elevated blood sugar: Blood sugar up to 221 on 04/06 while on steroids. - A1c was 5.8% on 04/07 - Monitor (4) Hepatitis: Abnormal LFTs on admission with AST/ALT at 140/130. Concern for viral hepatitis from Covid, though normal coagulation labs indicate acceptable hepatic function. - Follow serially for stability - Still elevated, though improving. Down to 41/150 on 04/09. (5) Hypertension: BP is 125/70 today. - Continue losartan (6) NITIN (generalized anxiety disorder): No acute inpatient needs today. - Continue bupropion (7) Dyslipidemia: - Continue simvastatin (8) DVT prophylaxis: Lovenox 60 mg SQ daily Admission and Anticipated Discharge Date Admission Date: April 05, 2020 Subjective Doing great today. Feeling very happy. Reports no fevers/chills, chest pain, shortness of breath, abdominal pain, nausea, or vomiting. Physical Exam Constitutional: WD/WN, vitals as above + obese; no acute distress Eyes: EOM intact bilaterally; no conjunctival abnormality ENMT: external ear and nose normal, oropharynx normal Neck: trachea midline, no thyromegaly normal visual inspection Respiratory: normal respiratory effort, lungs clear to auscultation no respiratory distress, no labored breathing and not tachypneic Auscultation: + diminished lung sounds; no crackles Cardiovascular: RRR, no murmur, no edema Gastrointestinal (Abdomen): Inspection/Auscultation: abdomen normal to inspection; abdomen not distended Musculoskeletal: no cyanosis or clubbing, extremities motor strength 5/5 Skin: no rashes, warm and dry Neurologic: moves all extremities and awake Psychiatric: Orientation: alert, oriented to person and cooperative Results & Data Results & Data ([facility]) Vital Signs (Past 12 Hours) Vital Signs Temp Pulse Resp BP Pulse Ox 04/17/20 07:54 36.6 C 70 20 124/71 94 PG Care Time/CCT Total # of Minutes Spent Total Time Spent with Patient: Total time spent is greater than 50% in coordination of care (as documented) at patient's floor/unit and/or counseling patient: Coding Level of Care Code 17947 Subseq Hosp Care Lvl 2 Diagnoses Pneumonia due to COVID-19 virus U07.1; J12.89 Acute respiratory failure with hypoxemia J96.01 Elevated blood sugar R73.9 Hepatitis K75.9 Hypertension I10 NITIN (generalized anxiety disorder) F41.1 Dyslipidemia E78.5 DVT prophylaxis Z29.9
[2020-04-17] MEDS: ENOXAPARIN INJ 60 MG/0.6 ML SYR SQ SCH (21:20)
[2020-04-17] MEDS: SIMVASTATIN 20 MG TAB PO SCH (21:24)
[2020-04-18] MEDS: ACETAMINOPHEN 325 MG TAB PO PRN (04:01)
[2020-04-18] MEDS: ALBUTEROL HFA 8 GM INHALER INH PRN (04:18)
[2020-04-18] MEDS: buPROPion XL 300 MG TABCR PO SCH (09:26)
[2020-04-18] MEDS: guaiFENesin 600 MG TABCR PO SCH ×2 (09:26→20:29)
[2020-04-18] MEDS: LOSARTAN POTASSIUM 50 MG TAB PO SCH (09:26)
[2020-04-18] MEDS: NYSTATIN SUSP 500,000 U/5 ML UDC PO SCH ×3 (09:27→20:29)
[2020-04-18] MEDS: DOCUSATE SODIUM/SENNA 50/8.6MG TAB PO SCH (09:29)
[2020-04-18] MEDS: DOCUSATE SODIUM 100 MG CAP PO SCH ×2 (09:29→20:29)
--- NOTE | 2020-04-18 16:21 | Hospitalist Progress Note ---
Date of Service April 18, 2020 Assessment & Plan (1) Pneumonia due to COVID-19 virus: Initially diagnosed on 04/03/2020. - Convalescent plasma ordered - transfused on 04/06 - Finished remdesivir (End date: 04/09/2020) - Finished dexamethasone 6 mg IV daily (End date: 04/14/2020) - Stopped CAP abx for negative procalcitonin on 04/09. - Supplemental O2 as needed -> Improving today. Now down to 2L NC, though needing 6L with exertion. (2) Acute respiratory failure with hypoxemia: See above (3) Elevated blood sugar: Blood sugar up to 221 on 04/06 while on steroids. - A1c was 5.8% on 04/07 - Monitor (4) Hepatitis: Abnormal LFTs on admission with AST/ALT at 140/130. Concern for viral hepatitis from Covid, though normal coagulation labs indicate acceptable hepatic function. - Follow serially for stability - Still elevated, though improving. Down to 41/150 on 04/09. (5) Hypertension: BP is 125/70 today. - Continue losartan (6) NITIN (generalized anxiety disorder): No acute inpatient needs today. - Continue bupropion (7) Dyslipidemia: - Continue simvastatin (8) DVT prophylaxis: Lovenox 60 mg SQ daily Admission and Anticipated Discharge Date Admission Date: April 05, 2020 Subjective Less excited today, but definitely still improving. Less shortness of breath even with walking. Reports no fevers/chills, chest pain, shortness of breath, abdominal pain, nausea, or vomiting. Physical Exam Constitutional: WD/WN, vitals as above + obese; no acute distress Eyes: EOM intact bilaterally; no conjunctival abnormality ENMT: external ear and nose normal, oropharynx normal Neck: trachea midline, no thyromegaly normal visual inspection Respiratory: normal respiratory effort, lungs clear to auscultation no respiratory distress, no labored breathing and not tachypneic Auscultation: + diminished lung sounds; no crackles Cardiovascular: RRR, no murmur, no edema Gastrointestinal (Abdomen): Inspection/Auscultation: abdomen normal to inspection; abdomen not distended Musculoskeletal: no cyanosis or clubbing, extremities motor strength 5/5 Skin: no rashes, warm and dry Neurologic: moves all extremities and awake Psychiatric: Orientation: alert, oriented to person and cooperative Results & Data Results & Data ([facility]) Vital Signs (Past 12 Hours) Vital Signs Temp Pulse Pulse Pulse Pulse Pulse Pulse 04/18/20 15:53 36.7 C 80 04/18/20 11:38 70 87 87 86 88 04/18/20 08:05 36.5 C 04/18/20 07:50 Pulse Pulse Resp Resp Resp Resp Resp 04/18/20 15:53 16 04/18/20 11:38 73 70 20 22 22 22 04/18/20 08:05 20 04/18/20 07:50 Resp Resp Resp BP Pulse Ox Pulse Ox Pulse Ox 04/18/20 15:53 117/72 94 04/18/20 11:38 22 20 20 94 83 L 04/18/20 08:05 104/68 97 04/18/20 07:50 Pulse Ox Pulse Ox Pulse Ox Pulse Ox Pulse Ox Pulse Ox 04/18/20 15:53 04/18/20 11:38 85 L 87 L 79 L 93 85 L 04/18/20 08:05 04/18/20 07:50 96 PG Care Time/CCT Total # of Minutes Spent Total Time Spent with Patient: Total time spent is greater than 50% in coordination of care (as documented) at patient's floor/unit and/or counseling patient: Coding Level of Care Code 45942 Subseq Hosp Care Lvl 2 Diagnoses Pneumonia due to COVID-19 virus U07.1; J12.89 Acute respiratory failure with hypoxemia J96.01 Elevated blood sugar R73.9 Hepatitis K75.9 Hypertension I10 NITIN (generalized anxiety disorder) F41.1 Dyslipidemia E78.5 DVT prophylaxis Z29.9
[2020-04-18] MEDS: ENOXAPARIN INJ 60 MG/0.6 ML SYR SQ SCH (20:28)
[2020-04-18] MEDS: SIMVASTATIN 20 MG TAB PO SCH (20:29)
[2020-04-19] MEDS: guaiFENesin 600 MG TABCR PO SCH ×2 (09:19→20:20)
[2020-04-19] MEDS: LOSARTAN POTASSIUM 50 MG TAB PO SCH (09:20)
[2020-04-19] MEDS: DOCUSATE SODIUM 100 MG CAP PO SCH (09:20)
[2020-04-19] MEDS: buPROPion XL 300 MG TABCR PO SCH (09:21)
[2020-04-19] MEDS: NYSTATIN SUSP 500,000 U/5 ML UDC PO SCH ×3 (09:21→20:21)
[2020-04-19] MEDS: DOCUSATE SODIUM/SENNA 50/8.6MG TAB PO SCH (09:22)
--- NOTE | 2020-04-19 17:13 | Hospitalist Progress Note ---
Date of Service April 19, 2020 Assessment & Plan (1) Pneumonia due to COVID-19 virus: Initially diagnosed on 04/03/2020. - Convalescent plasma ordered - transfused on 04/06 - Finished remdesivir (End date: 04/09/2020) - Finished dexamethasone 6 mg IV daily (End date: 04/14/2020) - Stopped CAP abx for negative procalcitonin on 04/09. - Supplemental O2 as needed -> Improving today. More exercise tolerance, though still with shortness of breath when she moves. Was up to 5L on interview, but her O2 sat was 100%, so I do not think she needs that much. Turned it down to 4L, and still >95%. I think she truly only needs 2L at rest. With exertion, she needs more, but quickly recovers after taking a break. Still hopeful for Friday discharge. (2) Acute respiratory failure with hypoxemia: See above (3) Elevated blood sugar: Blood sugar up to 221 on 04/06 while on steroids. - A1c was 5.8% on 04/07 - Monitor; blood sugars ok on BMP last few days. No issues now that steroids are done. (4) Hepatitis: Abnormal LFTs on admission with AST/ALT at 140/130. Concern for viral hepatitis from Covid, though normal coagulation labs indicate acceptable hepatic function. - Follow serially for stability - Still elevated, though improving. Down to 41/150 on 04/09. (5) Hypertension: BP is 125/75 today. - Continue losartan (6) NITIN (generalized anxiety disorder): No acute inpatient needs today. - Continue bupropion (7) Dyslipidemia: - Continue simvastatin (8) DVT prophylaxis: Lovenox 60 mg SQ daily Admission and Anticipated Discharge Date Admission Date: April 05, 2020 Subjective Improving again today. Still with shortness of breath with exertion, but her exercise tolerance is improving daily. Minimal shortness of breath at rest. Physical Exam Constitutional: WD/WN, vitals as above + obese; no acute distress Eyes: EOM intact bilaterally; no conjunctival abnormality ENMT: external ear and nose normal, oropharynx normal Neck: trachea midline, no thyromegaly normal visual inspection Respiratory: normal respiratory effort, lungs clear to auscultation no respiratory distress, no labored breathing and not tachypneic Auscultation: + diminished lung sounds; no crackles Cardiovascular: RRR, no murmur, no edema Gastrointestinal (Abdomen): Inspection/Auscultation: abdomen normal to inspection; abdomen not distended Musculoskeletal: no cyanosis or clubbing, extremities motor strength 5/5 Skin: no rashes, warm and dry Neurologic: moves all extremities and awake Psychiatric: Orientation: alert, oriented to person and cooperative Results & Data Results & Data ([facility]) Vital Signs (Past 12 Hours) Vital Signs Temp Pulse Pulse Resp BP BP Pulse Ox 04/19/20 15:35 36.8 C 84 16 126/76 95 04/19/20 07:47 36.5 C 71 22 122/74 99 PG Care Time/CCT Total # of Minutes Spent Total Time Spent with Patient: Total time spent is greater than 50% in coordination of care (as documented) at patient's floor/unit and/or counseling patient: Coding Level of Care Code 27221 Subseq Hosp Care Lvl 2 Diagnoses Pneumonia due to COVID-19 virus U07.1; J12.89 Acute respiratory failure with hypoxemia J96.01 Elevated blood sugar R73.9 Hepatitis K75.9 Hypertension I10 NITIN (generalized anxiety disorder) F41.1 Dyslipidemia E78.5 DVT prophylaxis Z29.9
[2020-04-19] MEDS: ENOXAPARIN INJ 60 MG/0.6 ML SYR SQ SCH (20:19)
[2020-04-19] MEDS: SIMVASTATIN 20 MG TAB PO SCH (20:20)
[2020-04-20] MEDS ORDERED: NURSING DECISION MEDICATION ONE (07:43)
[2020-04-20] MEDS: SODIUM CHLORIDE 0.65% NA SOLN 45 ML (OCEAN) PRN (08:49)
[2020-04-20] MEDS: buPROPion XL 300 MG TABCR PO SCH (08:50)
[2020-04-20] MEDS: LOSARTAN POTASSIUM 50 MG TAB PO SCH (08:50)
[2020-04-20] MEDS: guaiFENesin 600 MG TABCR PO SCH ×2 (08:50→21:51)
[2020-04-20] MEDS: NYSTATIN SUSP 500,000 U/5 ML UDC PO SCH ×3 (08:51→21:50)
[2020-04-20] MEDS: DOCUSATE SODIUM/SENNA 50/8.6MG TAB PO SCH (08:58)
--- NOTE | 2020-04-20 16:30 | Hospitalist Progress Note ---
Date of Service April 20, 2020 Assessment & Plan (1) Pneumonia due to COVID-19 virus: Initially diagnosed on 04/03/2020. - Convalescent plasma ordered - transfused on 04/06 - Finished remdesivir (End date: 04/09/2020) - Finished dexamethasone 6 mg IV daily (End date: 04/14/2020) - Stopped CAP abx for negative procalcitonin on 04/09. - Supplemental O2 as needed -> Stable today. Only needs 1-2L at rest, but desaturates with exertion. Will trial 5L and see how she does. If it goes well, she could go home with family, but if she needs >6L, she will likely need to remain in the hospital longer or consider LTACH. (2) Acute respiratory failure with hypoxemia: See above (3) Elevated blood sugar: Blood sugar up to 221 on 04/06 while on steroids. - A1c was 5.8% on 04/07 - Monitor; blood sugars ok on BMP last few days. No issues now that steroids are done. (4) Hepatitis: Abnormal LFTs on admission with AST/ALT at 140/130. Concern for viral hepatitis from Covid, though normal coagulation labs indicate acceptable hepatic function. - Follow serially for stability - Still elevated, though improving. Down to 41/150 on 04/09. (5) Hypertension: BP is 130/80 today. - Continue losartan (6) NITIN (generalized anxiety disorder): No acute inpatient needs today. - Continue bupropion (7) Dyslipidemia: - Continue simvastatin (8) DVT prophylaxis: Lovenox 60 mg SQ daily Admission and Anticipated Discharge Date Admission Date: April 05, 2020 Subjective Doing well today. More energy. Reports no fevers/chills, chest pain, shortness of breath, abdominal pain, nausea, or vomiting. Physical Exam Constitutional: WD/WN, vitals as above + obese; no acute distress Eyes: EOM intact bilaterally; no conjunctival abnormality ENMT: external ear and nose normal, oropharynx normal Neck: trachea midline, no thyromegaly normal visual inspection Respiratory: normal respiratory effort, lungs clear to auscultation no respiratory distress, no labored breathing and not tachypneic Auscultation: + diminished lung sounds; no crackles Cardiovascular: RRR, no murmur, no edema Gastrointestinal (Abdomen): Inspection/Auscultation: abdomen normal to inspection; abdomen not distended Musculoskeletal: no cyanosis or clubbing, extremities motor strength 5/5 Skin: no rashes, warm and dry Neurologic: moves all extremities and awake Psychiatric: Orientation: alert, oriented to person and cooperative Results & Data Results & Data ([facility]) Vital Signs (Past 12 Hours) Vital Signs Temp Pulse Pulse Resp BP Pulse Ox Pulse Ox 04/20/20 15:29 36.8 C 85 18 131/79 92 04/20/20 12:43 95 04/20/20 07:37 36.8 C 78 20 112/71 93 PG Care Time/CCT Total # of Minutes Spent Total Time Spent with Patient: Total time spent is greater than 50% in coordination of care (as documented) at patient's floor/unit and/or counseling patient: Coding Level of Care Code 30567 Subseq Hosp Care Lvl 2 Diagnoses Pneumonia due to COVID-19 virus U07.1; J12.89 Acute respiratory failure with hypoxemia J96.01 Elevated blood sugar R73.9 Hepatitis K75.9 Hypertension I10 NITIN (generalized anxiety disorder) F41.1 Dyslipidemia E78.5 DVT prophylaxis Z29.9
[2020-04-20] MEDS: ENOXAPARIN INJ 60 MG/0.6 ML SYR SQ SCH (21:50)
[2020-04-20] MEDS: SIMVASTATIN 20 MG TAB PO SCH (21:51)
[2020-04-21] MEDS: ACETAMINOPHEN 325 MG TAB PO PRN (01:19)
[2020-04-21 07:47] LABS: Hematocrit (blood only) 35.7 % (37-47); Hemoglobin 11.3 g/dL (12.0-16.0); Mean Corpuscular Hemoglobin 28.7 pg (25-34); Mean Corpuscular Hgb Conc 31.7 g/dL (32-36); Mean Corpuscular Volume 90.6 fL (80-100); Platelet Count 160 K/uL (130-400); RDW Coefficient of Variation 14.4 % (11.5-14.5); RDW Standard Deviation 47.8 fL (36.4-46.3); Red Blood Count 3.94 M/uL (4.2-5.4); White Blood Count 5.48 K/uL (4.8-10.8)
[2020-04-21 08:13] LABS: Calcium 8.9 mg/dl (8.5-10.1); Creatinine Clr Calc Pharmacy 106.9 ml/min; Magnesium 2.4 mg/dl (1.8-2.4); Potassium 3.9 mmol/L (3.5-5.1)
[2020-04-21] MEDS: DOCUSATE SODIUM/SENNA 50/8.6MG TAB PO SCH (08:55)
[2020-04-21] MEDS: guaiFENesin 600 MG TABCR PO SCH ×2 (08:55→20:12)
[2020-04-21] MEDS: POLYETHYLENE (MIRALAX) 17 GM PACK PO SCH (08:55)
[2020-04-21] MEDS: LOSARTAN POTASSIUM 50 MG TAB PO SCH (08:56)
[2020-04-21] MEDS: buPROPion XL 300 MG TABCR PO SCH (08:56)
--- NOTE | 2020-04-21 15:29 | Hospitalist Progress Note ---
Date of Service April 21, 2020 Assessment & Plan (1) Pneumonia due to COVID-19 virus: Initially diagnosed on 04/03/2020. - Convalescent plasma ordered - transfused on 04/06 - Finished remdesivir (End date: 04/09/2020) - Finished dexamethasone 6 mg IV daily (End date: 04/14/2020) - Stopped CAP abx for negative procalcitonin on 04/09. - Supplemental O2 as needed -> Stable today. Only needs 1-2L at rest, but desaturates with exertion. This morning, I turned her up to 6L, then we walked in the room. After about 2 minutes, SpO2 went down to 80% and she felt short of breath. Sat down and O2 sat returned to 95% after another 2 minutes or so. Given the >6L O2 demand with exertion, I feel uncomfortable with her going home, but the patient and family are weighing options at this time. (2) Acute respiratory failure with hypoxemia: See above (3) Elevated blood sugar: Blood sugar up to 221 on 04/06 while on steroids. - A1c was 5.8% on 04/07 - Monitor; blood sugars ok on BMP last few days. No issues now that steroids are done. (4) Hepatitis: Abnormal LFTs on admission with AST/ALT at 140/130. Concern for viral hepatitis from Covid, though normal coagulation labs indicate acceptable hepatic function. - Follow serially for stability - Still elevated, though improving. Down to 41/150 on 04/17. (5) Hypertension: BP is 140/80 today. - Continue losartan (6) NITIN (generalized anxiety disorder): No acute inpatient needs today. - Continue bupropion (7) Dyslipidemia: - Continue simvastatin (8) DVT prophylaxis: Lovenox 60 mg SQ daily Admission and Anticipated Discharge Date Admission Date: April 05, 2020 Subjective More energy today. No shortness of breath with rest, but definitely with exertion. Reports no fevers/chills, chest pain, shortness of breath, abdominal pain, nausea, or vomiting. Physical Exam Constitutional: WD/WN, vitals as above no acute distress Eyes: EOM intact bilaterally; no conjunctival abnormality ENMT: external ear and nose normal, oropharynx normal Neck: trachea midline, no thyromegaly normal visual inspection Respiratory: normal respiratory effort, lungs clear to auscultation no respiratory distress, no labored breathing and not tachypneic Auscultation: + diminished lung sounds; no crackles Cardiovascular: RRR, no murmur, no edema Gastrointestinal (Abdomen): Inspection/Auscultation: abdomen normal to inspection; abdomen not distended Musculoskeletal: no cyanosis or clubbing, extremities motor strength 5/5 Skin: no rashes, warm and dry Neurologic: moves all extremities and awake Psychiatric: Orientation: alert, oriented to person and cooperative Results & Data Results & Data ([facility]) Vital Signs (Past 12 Hours) Vital Signs Temp Pulse BP Pulse Ox Pulse Ox 04/21/20 12:54 36.5 C 78 138/78 94 04/21/20 09:36 94 04/21/20 07:38 36.7 C 72 129/79 93 PG Care Time/CCT Total # of Minutes Spent Total Time Spent with Patient: Total time spent is greater than 50% in coordination of care (as documented) at patient's floor/unit and/or counseling patient: Coding Level of Care Code 50297 Subseq Hosp Care Lvl 2 Diagnoses Pneumonia due to COVID-19 virus U07.1; J12.89 Acute respiratory failure with hypoxemia J96.01 Elevated blood sugar R73.9 Hepatitis K75.9 Hypertension I10 NITIN (generalized anxiety disorder) F41.1 Dyslipidemia E78.5 DVT prophylaxis Z29.9
[2020-04-21] MEDS: ENOXAPARIN INJ 60 MG/0.6 ML SYR SQ SCH (20:13)
[2020-04-21] MEDS: SIMVASTATIN 20 MG TAB PO SCH (20:13)
[2020-04-22] MEDS: ACETAMINOPHEN 325 MG TAB PO PRN (01:55)
[2020-04-22] MEDS: LOSARTAN POTASSIUM 50 MG TAB PO SCH (08:34)
[2020-04-22] MEDS: buPROPion XL 300 MG TABCR PO SCH (08:34)
[2020-04-22] MEDS: guaiFENesin 600 MG TABCR PO SCH ×2 (08:35→22:04)
[2020-04-22] MEDS: DOCUSATE SODIUM/SENNA 50/8.6MG TAB PO SCH (08:40)
[2020-04-22] MEDS: POLYETHYLENE (MIRALAX) 17 GM PACK PO SCH (08:40)
--- NOTE | 2020-04-22 16:32 | Hospitalist Progress Note ---
Date of Service April 22, 2020 Assessment & Plan (1) Pneumonia due to COVID-19 virus: Initially diagnosed on 04/03/2020. - Convalescent plasma ordered - transfused on 04/06 - Finished remdesivir (End date: 04/09/2020) - Finished dexamethasone 6 mg IV daily (End date: 04/14/2020) - Stopped CAP abx for negative procalcitonin on 04/09. - Supplemental O2 as needed -> Stable today on 2-3L at rest will try for 2 step on Friday to see if we can get her home on less than 6L on exertion (2) Acute respiratory failure with hypoxemia: See above plan for two step on Tuesday 04/24 (3) Elevated blood sugar: Blood sugar up to 221 on 04/06 while on steroids. - A1c was 5.8% on 04/07 - Monitor; blood sugars ok on BMP last few days. No issues now that steroids are done. eating well (4) Hepatitis: Abnormal LFTs on admission with AST/ALT at 140/130. Concern for viral hepatitis from Covid, though normal coagulation labs indicate acceptable hepatic function. - Follow serially for stability - Still elevated, though improving. Down to 41/150 on 04/17. (5) Hypertension: BP is stable - Continue losartan (6) NITIN (generalized anxiety disorder): No acute inpatient needs today. - Continue bupropion (7) Dyslipidemia: - Continue simvastatin (8) DVT prophylaxis: Lovenox 60 mg SQ daily Admission and Anticipated Discharge Date Admission Date: April 05, 2020 Subjective patient doing well, breathing is stable on 3L at rest gets really short of breath on exertion, just walking to the bathroom requires more that 6L on exertion however, she feels like she is improving slowly she is eating and drinking quite well reviewed chart reviewed recent labs I updated her daughter Judy over the phone, discussed repeating 2 step on Friday, try to get her home Review of Systems Review of Systems: All systems reviewed & are unremarkable except as noted in Subjective Constitutional: no fever, no fatigue and no weakness Respiratory: + dyspnea on exertion; no cough Cardiovascular: no chest pain Gastrointestinal: no abdominal pain, no nausea, no vomiting, no constipation and no diarrhea/loose stools Physical Exam Constitutional: WD/WN, vitals as above no acute distress Neck: trachea midline, no thyromegaly Respiratory: normal respiratory effort, lungs clear to auscultation no respiratory distress Cardiovascular: RRR, no murmur, no edema Gastrointestinal (Abdomen): normal bowel sounds, soft, nontender, no hepatosplenomegaly Musculoskeletal: no cyanosis or clubbing, extremities motor strength 5/5 Skin: no rashes, warm and dry Neurologic: patellar DTR's 2+ bilat, sensation intact and PERRL, EOMI, accommodation nl, no face palsy, no dysarthria Psychiatric: A+Ox3, euthymic affect Lymphatic: no cervical or axillary lymphadenopathy Results & Data Results & Data ([facility]) Vital Signs (Past 12 Hours) Vital Signs Temp Pulse Resp BP Pulse Ox 04/22/20 15:56 36.6 C 84 18 132/82 93 04/22/20 07:55 36.7 C 67 22 118/72 94 Medications Administered Current Inpatient Medications Acetaminophen (Acetaminophen 325 Mg Tab) 650 mg PO Q6H PRN PRN Reason: Fever Or Pain Stop: 05/05/20 22:45 Last Admin: 04/22/20 01:55 Dose: 650 mg Documented by: Al Hydrox/Mg Hydrox/Simethicone (Aluminum/Magnesium Susp 30 Ml Udc) 30 ml PO Q6H PRN PRN Reason: Dyspepsia Stop: 05/13/20 23:28 Last Admin: 04/14/20 00:06 Dose: 30 ml Documented by: Albuterol (Albuterol Hfa 8 Gm Inhaler) 2 puffs INH Q2R PRN PRN Reason: SOB/WHEEZING Stop: 05/05/20 22:09 Last Admin: 04/18/20 04:18 Dose: 2 puffs Documented by: Benzonatate (Benzonatate 100 Mg Capsule) 100 mg PO TID PRN PRN Reason: Cough Stop: 05/05/20 22:45 Last Admin: 04/10/20 05:30 Dose: 100 mg Documented by: Bupropion HCl (Bupropion Xl 300 Mg Tabcr) 300 mg PO QAM [facility] Stop: 05/06/20 08:59 Last Admin: 04/22/20 08:34 Dose: 300 mg Documented by: Cyclobenzaprine HCl (Cyclobenzaprine Hcl 5 Mg Tab) 5 mg PO TID PRN PRN Reason: Muscle Spasm Stop: 05/05/20 22:45 Last Admin: 12/08/20 01:35 Dose: 5 mg Documented by: Enoxaparin Sodium (Enoxaparin Inj 60 Mg/0.6 Ml Syr) 60 mg SQ DAILY@1999 [facility] Stop: 05/05/20 23:29 Last Admin: 04/21/20 20:13 Dose: 60 mg Documented by: Fexofenadine HCl (Fexofenadine 60 Mg Tab) 60 mg PO DAILY PRN PRN Reason: Allergy Symptoms Stop: 05/05/20 22:45 Guaifenesin (Guaifenesin 600 Mg Tabcr) 1,200 mg PO BID [facility] Stop: 05/10/20 10:59 Last Admin: 04/22/20 08:35 Dose: 1,200 mg Documented by: Losartan Potassium (Losartan Potassium 50 Mg Tab) 50 mg PO DAILY [facility] Stop: 05/06/20 08:59 Last Admin: 04/22/20 08:34 Dose: 50 mg Documented by: Miconazole Nitrate (Miconazole Nitrate Powder 43 Gm) 1 appln EXT PRN PRN PRN Reason: Affected Skin Folds Stop: 05/16/20 16:22 Last Admin: 04/21/20 12:32 Dose: 1 appln Documented by: Ondansetron HCl (Ondansetron Inj 2 Mg/Ml 2 Ml Vial) 4 mg IV Q6H PRN PRN Reason: Nausea Stop: 05/05/20 22:45 Last Admin: 04/10/20 08:19 Dose: 4 mg Documented by: Polyethylene Glycol (Polyethylene (Miralax) 17 Gm Pack) 17 gm PO DAILY [facility] Stop: 05/21/20 08:59 Last Admin: 04/22/20 08:40 Dose: 17 gm Documented by: Senna/Docusate Sodium (Docusate Sodium/Senna 50/8.6mg Tab) 1 tab PO QAM [facility] Stop: 05/13/20 16:44 Last Admin: 04/22/20 08:40 Dose: 1 tab Documented by: Simvastatin (Simvastatin 20 Mg Tab) 20 mg PO QPM [facility] Stop: 05/05/20 23:29 Last Admin: 04/21/20 20:13 Dose: 20 mg Documented by: Sodium Chloride (Sodium Chloride 0.65% Na Soln 45 Ml ([place])) 1 sprays NA Q1H PRN PRN Reason: Dryness Stop: 05/09/20 04:39 Last Admin: 04/20/20 08:49 Dose: 1 sprays Documented by: PG Care Time/CCT Total # of Minutes Spent Total Time Spent with Patient: Total time spent is greater than 50% in coordination of care (as documented) at patient's floor/unit and/or counseling patient: Coding Level of Care Code 32818 Subseq Hosp Care Lvl 2 Diagnoses Pneumonia due to COVID-19 virus U07.1; J12.89 Acute respiratory failure with hypoxemia J96.01 Elevated blood sugar R73.9 Hepatitis K75.9 Hypertension I10 NITIN (generalized anxiety disorder) F41.1 Dyslipidemia E78.5 DVT prophylaxis Z29.9
[2020-04-22] MEDS: ENOXAPARIN INJ 60 MG/0.6 ML SYR SQ SCH (22:03)
[2020-04-22] MEDS: SIMVASTATIN 20 MG TAB PO SCH (22:05)
[2020-04-23] MEDS: guaiFENesin 600 MG TABCR PO SCH ×2 (08:35→20:15)
[2020-04-23] MEDS: LOSARTAN POTASSIUM 50 MG TAB PO SCH (08:35)
[2020-04-23] MEDS: DOCUSATE SODIUM/SENNA 50/8.6MG TAB PO SCH (08:35)
[2020-04-23] MEDS: buPROPion XL 300 MG TABCR PO SCH (08:35)
[2020-04-23] MEDS: POLYETHYLENE (MIRALAX) 17 GM PACK PO SCH (08:36)
--- NOTE | 2020-04-23 13:11 | Hospitalist Progress Note ---
Date of Service April 23, 2020 Assessment & Plan (1) Pneumonia due to COVID-19 virus: Initially diagnosed on 04/03/2020. - Convalescent plasma ordered - transfused on 04/06 - Finished remdesivir (End date: 04/09/2020) - Finished dexamethasone 6 mg IV daily (End date: 04/14/2020) - Stopped CAP abx for negative procalcitonin on 04/09. - Supplemental O2 as needed -> Stable today on 2L at rest will try for 2 step on tomorrow to see if we can get her home on less than 6L on exertion (2) Acute respiratory failure with hypoxemia: See above plan for two step on Tuesday 04/24 likely home tomorrow with oxygen (3) Elevated blood sugar: Blood sugar up to 221 on 04/06 while on steroids. - A1c was 5.8% on 04/07 - Monitor; blood sugars ok on BMP last few days. No issues now that steroids are done. eating well (4) Hepatitis: Abnormal LFTs on admission with AST/ALT at 140/130. Concern for viral hepatitis from Covid, though normal coagulation labs indicate acceptable hepatic function. - Follow serially for stability - Still elevated, though improving. Down to 41/150 on 04/17. repeat tomorrow prior to discharge (5) Hypertension: BP is stable - Continue losartan (6) NITIN (generalized anxiety disorder): No acute inpatient needs today. - Continue bupropion (7) Dyslipidemia: - Continue simvastatin (8) DVT prophylaxis: Lovenox 60 mg SQ daily Admission and Anticipated Discharge Date Admission Date: April 05, 2020 Subjective patient continues to slowly improve, titrated down to 2L this morning, no distress still with dyspnea on exertion but far less discussed getting two step tomorrow, she agrees with plan she is eating and drinking well, no fever she plans to go to [place] to live with her daughter and will stay for two months to recover this sounds like a very safe plan Review of Systems Review of Systems: All systems reviewed & are unremarkable except as noted in Subjective Physical Exam Constitutional: WD/WN, vitals as above no acute distress Neck: trachea midline, no thyromegaly Respiratory: normal respiratory effort, lungs clear to auscultation no respiratory distress Cardiovascular: RRR, no murmur, no edema Gastrointestinal (Abdomen): normal bowel sounds, soft, nontender, no hepatosplenomegaly Musculoskeletal: no cyanosis or clubbing, extremities motor strength 5/5 Skin: no rashes, warm and dry Neurologic: patellar DTR's 2+ bilat, sensation intact and PERRL, EOMI, accommodation nl, no face palsy, no dysarthria Psychiatric: A+Ox3, euthymic affect Lymphatic: no cervical or axillary lymphadenopathy Results & Data Results & Data ([facility]) Vital Signs (Past 12 Hours) Vital Signs Temp Pulse BP Pulse Ox 04/23/20 08:10 36.9 C 83 184/82 H 92 Medications Administered Current Inpatient Medications Acetaminophen (Acetaminophen 325 Mg Tab) 650 mg PO Q6H PRN PRN Reason: Fever Or Pain Stop: 05/05/20 22:45 Last Admin: 04/22/20 01:55 Dose: 650 mg Documented by: Al Hydrox/Mg Hydrox/Simethicone (Aluminum/Magnesium Susp 30 Ml Udc) 30 ml PO Q6H PRN PRN Reason: Dyspepsia Stop: 05/13/20 23:28 Last Admin: 04/14/20 00:06 Dose: 30 ml Documented by: Albuterol (Albuterol Hfa 8 Gm Inhaler) 2 puffs INH Q2R PRN PRN Reason: SOB/WHEEZING Stop: 05/05/20 22:09 Last Admin: 04/18/20 04:18 Dose: 2 puffs Documented by: Benzonatate (Benzonatate 100 Mg Capsule) 100 mg PO TID PRN PRN Reason: Cough Stop: 05/05/20 22:45 Last Admin: 04/10/20 05:30 Dose: 100 mg Documented by: Bupropion HCl (Bupropion Xl 300 Mg Tabcr) 300 mg PO [facility] Stop: 05/06/20 08:59 Last Admin: 04/23/20 08:35 Dose: 300 mg Documented by: Cyclobenzaprine HCl (Cyclobenzaprine Hcl 5 Mg Tab) 5 mg PO TID PRN PRN Reason: Muscle Spasm Stop: 05/05/20 22:45 Last Admin: 04/11/20 01:35 Dose: 5 mg Documented by: Enoxaparin Sodium (Enoxaparin Inj 60 Mg/0.6 Ml Syr) 60 mg SQ DAILY@1999 [facility] Stop: 05/05/20 23:29 Last Admin: 04/22/20 22:03 Dose: 60 mg Documented by: Fexofenadine HCl (Fexofenadine 60 Mg Tab) 60 mg PO DAILY PRN PRN Reason: Allergy Symptoms Stop: 05/05/20 22:45 Guaifenesin (Guaifenesin 600 Mg Tabcr) 1,200 mg PO BID [facility] Stop: 05/10/20 10:59 Last Admin: 04/23/20 08:35 Dose: 1,200 mg Documented by: Losartan Potassium (Losartan Potassium 50 Mg Tab) 50 mg PO DAILY [facility] Stop: 05/06/20 08:59 Last Admin: 04/23/20 08:35 Dose: 50 mg Documented by: Miconazole Nitrate (Miconazole Nitrate Powder 43 Gm) 1 appln EXT PRN PRN PRN Reason: Affected Skin Folds Stop: 05/16/20 16:22 Last Admin: 04/21/20 12:32 Dose: 1 appln Documented by: Ondansetron HCl (Ondansetron Inj 2 Mg/Ml 2 Ml Vial) 4 mg IV Q6H PRN PRN Reason: Nausea Stop: 05/05/20 22:45 Last Admin: 04/10/20 08:19 Dose: 4 mg Documented by: Polyethylene Glycol (Polyethylene (Miralax) 17 Gm Pack) 17 gm PO DAILY [facility] Stop: 05/21/20 08:59 Last Admin: 04/23/20 08:36 Dose: Not Given Documented by: Senna/Docusate Sodium (Docusate Sodium/Senna 50/8.6mg Tab) 1 tab PO QAM [facility] Stop: 05/13/20 16:44 Last Admin: 04/23/20 08:35 Dose: 1 tab Documented by: Simvastatin (Simvastatin 20 Mg Tab) 20 mg PO QPM [facility] Stop: 05/05/20 23:29 Last Admin: 04/22/20 22:05 Dose: 20 mg Documented by: Sodium Chloride (Sodium Chloride 0.65% Na Soln 45 Ml ([place])) 1 sprays NA Q1H PRN PRN Reason: Dryness Stop: 05/09/20 04:39 Last Admin: 04/20/20 08:49 Dose: 1 sprays Documented by: PG Care Time/CCT Total # of Minutes Spent Total Time Spent with Patient: Total time spent is greater than 50% in coordination of care (as documented) at patient's floor/unit and/or counseling patient: Coding Level of Care Code 84891 Subseq Hosp Care Lvl 2 Diagnoses Pneumonia due to COVID-19 virus U07.1; J12.89 Acute respiratory failure with hypoxemia J96.01 Elevated blood sugar R73.9 Hepatitis K75.9 Hypertension I10 NITIN (generalized anxiety disorder) F41.1 Dyslipidemia E78.5 DVT prophylaxis Z29.9
[2020-04-23] MEDS: SIMVASTATIN 20 MG TAB PO SCH (20:15)
[2020-04-23] MEDS: ENOXAPARIN INJ 60 MG/0.6 ML SYR SQ SCH (20:15)
[2020-04-23] MEDS ORDERED: diphenhydrAMINE Capsule 25 MG CAP PO PRN (23:24)
[2020-04-24] MEDS ORDERED: POLYETHYLENE (MIRALAX) 17 GM PACK PO PRN (00:14)
[2020-04-24] MEDS: ACETAMINOPHEN 325 MG TAB PO PRN (03:08)
[2020-04-24 08:08] LABS: Hematocrit (blood only) 38.9 % (37-47); Hemoglobin 12.1 g/dL (12.0-16.0); Mean Corpuscular Hemoglobin 28.5 pg (25-34); Mean Corpuscular Hgb Conc 31.1 g/dL (32-36); Mean Corpuscular Volume 91.7 fL (80-100); Mean Platelet Volume 11.2 fL (7.4-10.4); Platelet Count 174 K/uL (130-400); RDW Coefficient of Variation 14.9 % (11.5-14.5); RDW Standard Deviation 49.4 fL (36.4-46.3); Red Blood Count 4.24 M/uL (4.2-5.4); White Blood Count 6.02 K/uL (4.8-10.8)
[2020-04-24] MEDS: LOSARTAN POTASSIUM 50 MG TAB PO SCH (08:19)
[2020-04-24] MEDS: guaiFENesin 600 MG TABCR PO SCH (08:20)
[2020-04-24] MEDS: buPROPion XL 300 MG TABCR PO SCH (08:20)
[2020-04-24] MEDS: DOCUSATE SODIUM/SENNA 50/8.6MG TAB PO SCH (08:20)
[2020-04-24] MEDS: SODIUM CHLORIDE 0.65% NA SOLN 45 ML (OCEAN) PRN (08:28)
[2020-04-24 08:36] LABS: Albumin Level 2.9 gm/dl (3.4-5.0); BUN Creatinine Ratio 13.1 (10-20); Calcium 8.9 mg/dl (8.5-10.1); Creatinine Clr Calc Pharmacy 97.9 ml/min; Est GFR (African American) 103.3; Est GFR (Non-African American) 89.1
[2020-04-24 08:39] LABS: Albumin Globulin Ratio 0.7 (0.9-2); Globulin 3.9 gm/dl (2.5-4.0); Total Protein 6.8 gm/dl (6.4-8.2)
--- NOTE | 2020-04-25 07:09 | Discharge Summary ---
Date of Service April 24, 2020 Admission HPI Per Admitting Provider The patient is a 65 yo female with a PMH of HTN, NITIN, Arhtritis, Hepatiatis, CARRION, Asthma, insomnia, GERD, DLD, and pancytopenia. She presents as noted above. Workup in the ED included a CXR which showed a multifocal pneumonia, platelets 128, K 3.3, D- Dimer 700 and COVID-19 +. Principal Diagnosis COVID 19 pneumonia with acute hypoxic respiratory failure Discharge Exam Constitutional WD/WN, vitals as above no acute distress Neck trachea midline, no thyromegaly Respiratory normal respiratory effort, lungs clear to auscultation no respiratory distress Cardiovascular RRR, no murmur, no edema Gastrointestinal (Abdomen) normal bowel sounds, soft, nontender, no hepatosplenomegaly Musculoskeletal no cyanosis or clubbing, extremities motor strength 5/5 Skin no rashes, warm and dry Neurologic patellar DTR's 2+ bilat, sensation intact and PERRL, EOMI, accommodation nl, no face palsy, no dysarthria Psychiatric A+Ox3, euthymic affect Lymphatic no cervical or axillary lymphadenopathy Discharge Data Allergies Allergy/AdvReac Type Severity Reaction Status Date / Time adhesive Allergy Unknown Skin Verified 04/05/20 19:08 irritation No Known Drug Allergies Allergy . Verified 04/05/20 19:08 Consultations 04/05/20 19:19 ED Decision to Admit Stat 04/05/20 22:46 Consult Case Management - Discharge Planning Routine Ordered Studies 04/05/20 20:31 CT angio chest PE protocol Urgent Hospital Course (1) Pneumonia due to COVID-19 virus: Initially diagnosed on 04/03/2020. - Convalescent plasma ordered - transfused on 04/06 - Finished remdesivir (End date: 04/09/2020) - Finished dexamethasone 6 mg IV daily (End date: 04/14/2020) - Stopped CAP abx for negative procalcitonin on 04/09. patient was in the hospital a prolonged period of time due to her high oxygen demand was on high flow for two weeks, slowly weaned down stable on 2L at rest for several days but her issue was desaturation with activity, could not maintain sats > 88% on 6L despite the desaturation she was not short of breath when exerting herself after several more days her saturations were 88% on 6L set her up with home oxygen, 2L at rest and 6L on exertion she plans to go to [place] to live with her daughter for 1-2 months to fully recover eating and drinking well, vitals stable for a long time (2) Acute respiratory failure with hypoxemia: See above two step showed she could go home with 2L at rest and 6L on exertion initially required high flow nasal canula for weeks (3) Elevated blood sugar: Blood sugar up to 221 on 04/06 while on steroids. - A1c was 5.8% on 04/07 No issues once steroids stopped eating well (4) Hypertension: BP is stable - Continue losartan (5) NITIN (generalized anxiety disorder): No acute inpatient needs today. - Continue bupropion (6) Dyslipidemia: - Continue simvastatin Total Time Total Time Spent Total Time Spent (In Minutes): 32 minutes Total Time Includes: Examination of the Patient, Discharge Planning, Medication Reconciliation and Other (discussion with patient's daughter) Discharge Plan Discharge Items Patient Disposition: Home - Self-Care Reason For Visit: PNEUMONIA DUE TO COVID-19 WITH HYPOXIA Discharge Diagnosis: COVID 19 pneumonia Acute hypoxic respiratory failure Condition on Discharge: Good Goals: stay well hydrated, well nourished, increase activity as tolerated titrate down on oxygen requirements gradually Activity: Resume your previous activity Non-emergency contact: Primary Care Provider Call non-emergency contact if: you have any medication questions and your symptoms worsen Follow-up/Referrals: Amarilis Lance MD [Primary Care Provider] - 05/04/20 10:20 am (THIS WILL BE A PHONE CALL APPOINTMENT.) Diet: Regular Addtl Attending Provider Instructions: Medications: no new medications OXYGEN: 2 step study shows that you need 2L continuous (day and night) and you need to increase to 6L when exerting yourself you recover quickly on 2L after you are done with exertion would expect oxygen requirements to slowly improve you can get a finger pulse oximeter at home, goal is for saturations to stay > 88% you can wean oxygen as tolerated but would expect you to still need it for a few weeks COVID 19 pneumonia: completed treatment with Dexamethasone, antibiotics, remdesivir and convalescent plasma in the recovery phase now stay well nourished, well hydrated, slowly titrate down on oxygen requirements as lungs heal you are no longer contagious, positive test was 20 days ago Pending Studies at Discharge: No Stand-Alone Forms: My [facility], Smoking Cessation Medications and DC Order Prescriptions: Continued simvastatin 20 mg tablet 20 mg PO QPM Qty: 30 RF: 5 losartan 50 mg tablet 50 mg PO DAILY Qty: 90 RF: 3 bupropion HCl 300 mg tablet extended release 24 hr 300 mg PO QAM Qty: 90 RF: 3 turmeric root extract 500 mg capsule 500 mg PO DAILY RF: 0 fexofenadine [Yoli Allergy] 60 mg tablet 60 mg PO DAILY PRN (Reason: Allergy Symptoms) RF: 0 meloxicam 15 mg tablet 15 mg PO .HOLD RF: 0 ondansetron HCl [Zofran] 4 mg tablet 4 mg PO Q6H PRN (Reason: Nausea And Vomiting) RF: 0 benzonatate [Tessalon Perles] 100 mg capsule See Rx Instructions PO TID PRN (Reason: Cough) RF: 0 fluticasone propionate [Flonase Allergy Relief] 50 mcg/actuation spray,suspension 2 sprays INTNAS DAILY PRN (Reason: Allergy Symptoms) RF: 0 cyclobenzaprine 5 mg tablet 5 mg PO TID PRN (Reason: Muscle Spasm) RF: 0 acetaminophen [Tylenol Extra Strength] 500 mg Tablet 1,000 mg PO Q6H PRN (Reason: Fever Or Pain) RF: 0 ibuprofen [Motrin IB] 200 mg Tablet 400 mg PO Q6H PRN (Reason: Fever Or Pain) RF: 0 Discharge Orders: Discharge Order (Routine); Ordered 04/24/20 Ordered By: Rm Cornelius/Other Patient Handouts: COVID-19 Home Care Admission Data Admit Date/Time: 04/05/20 20:40 Attending Provider: Rm Moralez Admit Provider: Stewart Jones Primary Care Provider: Amarilis Lance Other Interventions: Discharge Summary Assessment (RN) Last Done: 04/24/20 10:47 Coding Level of Care Code D/C Day Management >30 mins Diagnoses Pneumonia due to COVID-19 virus U07.1; J12.89 Acute respiratory failure with hypoxemia J96.01 Elevated blood sugar R73.9 Hypertension I10 NITIN (generalized anxiety disorder) F41.1 Dyslipidemia E78.5
== END 2020-04-24 17:11 | disposition home or self-care (01) | DRG 177 ==
LOC: ED 16:43 → SUATTDRO 20:40 → 2S 20:40 → 2N 04-06 10:10 → 2E 04-16 19:54 → 3E 04-17 22:06 → 3W 04-22 18:05

== ENCOUNTER 2024-03-09 05:49 | Inpatient (IN) ==
--- NOTE | 2024-03-01 13:05 | Anesthesiology Consultation ---
Date of Service March 01, 2024 Assessment & Plan Chart Review Chart Review: Acceptable Risk for Surgery and Patient NOT seen in Pre Admission Testing History Surgery Operation Date: 03/09/24 07:30 Proposed Procedures p Robotic Laparoscopic Assisted Partial Nephrectomy - Left - Anthony Mcelroy MD Height/Weight Height: 5 ft 4 in Weight: 112.491 kg Allergies Allergy/AdvReac Type Severity Reaction Status Date / Time adhesive Allergy Unknown Skin Verified 02/27/24 14:31 irritation No Known Drug Allergies Allergy . Verified 02/27/24 14:31 Medications Home Medications Medication Instructions Recorded Confirmed Last Taken fexofenadine 60 mg tablet (Yoli 60 mg PO QAM Allergy Symptoms 04/03/20 02/27/24 01/20/24 Allergy) acetaminophen 500 mg tablet 1,000 mg PO Q6H PRN Fever Or Pain 04/05/20 02/27/24 1 Week Ago (Tylenol Extra Strength) ~10/05/22 fluticasone propionate 50 2 sprays intranasal DAILY PRN 04/05/20 02/27/24 01/20/24 mcg/actuation nasal Allergy Symptoms spray,suspension (Flonase Allergy Relief) albuterol sulfate 90 mcg/actuation 2 puff inhalation Q6H PRN Wheezing 09/13/21 02/27/24 10/11/22 aerosol inhaler calcium 600 mg-D3 20 mcg-magnesium 1 tab PO DAILY 09/13/21 02/27/24 01/20/24 50 [id number]-[id number] tablet (Calcium 600-D3 Plus (mag-zinc)) CPAP Supplies #1 ea 06/24/22 02/16/24 Unknown cyclobenzaprine 5 mg tablet 5 mg PO TID PRN Muscle Spasm 09/22/23 02/27/24 Unknown ketoconazole 2 % topical cream 1 applic topical DAILY #15 grams 01/07/24 02/27/24 01/20/24 anastrozole 1 mg tablet 1 mg PO QAM 01/14/24 02/27/24 01/20/24 bupropion HCl 150 mg 24 hr tablet, 150 mg PO QAM 01/14/24 02/27/24 01/20/24 extended release cholecalciferol (vitamin D3) 100 1,000 unit PO QAM 01/14/24 02/27/24 01/20/24 mcg (4,000 unit) capsule losartan 100 mg tablet 100 mg PO QAM 01/14/24 02/27/24 01/20/24 omeprazole 40 mg capsule,delayed 40 mg PO DAILY PRN gerd 01/14/24 02/27/24 Unknown release simvastatin 20 mg tablet 20 mg PO QPM 01/14/24 02/27/24 01/20/24 Past Medical History Medical History Hx of breast cancer 2021, right breast, sx and xrt Dyslipidemia Hx of hepatitis (2020) while hospitalized for covid History of anesthesia reaction per pt, difficulty oxygenating with breast surgery in 2021 - had covid in 2020, hospitalized x 3 weeks, required home oxygen x 6 months. NITIN (generalized anxiety disorder) Vitamin B12 deficiency Arthritis Hx of colonic polyps pre- cancerous polyp Hx of splenomegaly (2020) while hospitalized for covid CARRION (nonalcoholic steatohepatitis) History of COVID-19 (2020) History of postoperative nausea and vomiting Hypertension Limb alert care status right arm Obstructive sleep apnea cpap Past Family History Family History Mother Gallbladder disease Kidney stones Brother Gallbladder disease Prostate cancer Sister Kidney disease Bipolar disorder Father Myocardial infarction Colon cancer Denies family history of Ovarian cancer Breast cancer Past Surgical History Surgical History Hx of colonoscopy with polypectomy History of surgery (1979) bilareral ovarian wedge resection - History of partial mastectomy of right breast (07/2021) with LN removal and XRT - grade 1 invasive carcinoma and carcinoma in situ History of excision of pilonidal cyst (1972) History of left knee replacement H/O arthroscopy of knee left History of colposcopy History of arthroplasty of left knee (10/2013) "Dr. Cai 10/2013" Social History Smoking Status: Never smoker Do You Dip or Chew Tobacco: No Hx Alcohol Use: No Hx Substance Use: No substance use type: does not use
[2024-03-09] MEDS ORDERED: GLYCOPYRROLATE 0.2 MG/ML VIAL ONE (06:41)
[2024-03-09] MEDS ORDERED: DEXAMETHASONE SOD INJ 4 MG/ML VIAL ONE (06:41)
[2024-03-09] MEDS ORDERED: ROCURONIUM BROMIDE 10 MG/ML 5 ML VIAL IV ONE (06:41)
[2024-03-09] MEDS ORDERED: ONDANSETRON INJ 2 MG/ML 2 ML VIAL ONE (06:41)
[2024-03-09] MEDS ORDERED: LIDOCAINE 2% 2 ML VIAL/AMP(20MG/ML) INFIL ONE (06:41)
[2024-03-09] MEDS ORDERED: PROPOFOL IV EMULSION 10 MG/ML 20 ML VIAL IV ONE (06:41)
[2024-03-09] MEDS ORDERED: MIDAZOLAM HCL 1 MG/ML 2ML VIAL ONE (06:42)
[2024-03-09] MEDS ORDERED: fentaNYL citrate PF 100 MCG/2 ML VIAL ONE ×3 (06:42→08:55)
[2024-03-09] MEDS ORDERED: SUGAMMADEX SODIUM 200 MG/2 ML VIAL IV ONE (06:43)
[2024-03-09] MEDS: LR 15ML/HR IV SCH (06:43)
[2024-03-09] MEDS ORDERED: KETAMINE HCL 10MG/ML SYR ONE (06:43)
[2024-03-09] MEDS ORDERED: PROMETHAZINE HCL 6.25 MG in SODIUM CHLORIDE 0.9% 50 ML IV PRN (07:03)
[2024-03-09] MEDS ORDERED: HYDROmorphone INJ 1 MG/ML SYRINGE IV PRN (07:03)
[2024-03-09] MEDS ORDERED: ATROPINE SULFATE 0.1 MG/ML 10ML SYR IV PRN (07:03)
[2024-03-09] MEDS ORDERED: ePHEDrine sulfate 50 MG/ML AMP IV PRN (07:03)
[2024-03-09] MEDS ORDERED: ONDANSETRON INJ 2 MG/ML 2 ML VIAL IV PRN ×2 (07:03→13:10)
--- NOTE | 2024-03-09 07:17 | History & Physical Bridge Note ---
Date of Service March 09, 2024 History & Physical Bridge Note I have examined the patient, reviewed the History & Physical and in the interval since the performance of the History & Physical I have noted the following changes of clinical significance: no changes noted
[2024-03-09] MEDS: ceFAZolin 2000MG 2,000 MG/15 ML SYR IV SCH ×2 (07:28→15:57)
[2024-03-09] MEDS ORDERED: MANNITOL 25% 12.5 GM/50 ML VIAL IV ONE (08:02)
[2024-03-09] MEDS ORDERED: ePHEDrine sulfate 50 MG/5 ML SYR ONE (08:55)
[2024-03-09] MEDS: SURGICEL ABSORB HEMOSTAT 2IN X 14IN TOP ONE (10:26)
[2024-03-09] MEDS: FLOSEAL HEMOSTATIC MATRIX 10ML TOP ONE (10:32)
[2024-03-09] MEDS: TISSEEL FIBRIN SEALANT 10ML TOP ONE (10:32)
[2024-03-09] MEDS: BUPIVACAINE 0.5 % 5 MG/1 ML MPF 30ML VIAL ONE (10:56)
--- NOTE | 2024-03-09 11:33 | Operative Report ---
PG Post Operative Report Pre & Post Diagnosis Operation Date: 03/09/24 07:30 Pre-Op Diagnosis: complex Cyst of Kidney Post-Op Diagnosis: complex Cyst of Kidney I identified the patient and participated in the time-out.: Yes Procedure Operation Date: 03/09/24 07:30 Actual Procedures p Robotic Assisted Laparoscopic Partial Left Nephrectomy(Left) - Anthony Mcelroy MD Surgeon Anthony Mcelroy MD Director Religious Education Dr. Teddy Powell; Char Little Estimated Blood Loss 50 Findings Consistent with Post-Op Diagnosis Specimens Left renal mass Description of Procedure Patient was identified in the preoperative folding area, appropriate informed consents reviewed and completed and she was transported to the operating suite. Upon arrival she was an appropriate preoperative antibiotics and general anesthesia. She was placed in a [id number] left side up lateral decubitus position with the bed flexed. She is padded braced appropriately prior to sterile drape. To begin the case I inserted a Veress needle in the left upper quadrant and insufflated the abdomen to 15 mmHg. We then marked tentative robotic port sites with 4 ports placed in a linear fashion beginning approximately 2 finger breaths below the costal margin and extending down the mid costal line. Each port was placed approximately 7 cm inferior to the port above it. There was a 12 mm energy assistant port placed approximately 8 cm medial to the line of robotic ports. There was a 5 mm energy assistant port placed approximately 8 cm inferior to that and l ateral to the umbilicus. After full inspection revealed no significant adhesions, I sequentially placed all the ports. The first port used was a Visiport which allowed clear visualization as I entered into the abdomen. We then proceeded to docked the robot. Of note, she has a significant mount of intra-abdominal fat and limited space. I was able to incise the white line of Toldt and medialized the colon and move the omentum off of the underlying left kidney. Gerota's fascia was identified and there was a substantial amount of fat around the kidney, estimated to be 5 cm in thickness in all directions. Initially tried to dissect medial to Gerota's fascia with the hope of identifying the gonadal vein. Unfortunately, this dissection was somewhat challenging because of the copious amounts of fat. After working for several moments in this area and without definitive identification of the ureter or the gonadal vein, I turned my attention back to the kidney. I did perform a laparoscopic ultrasound at that time and confirmed the lower pole of the kidney before incising drought's fascia and dissecting down to the kidney itself. Of note, the fat was not particularly sticky and that is dissected off the kidney relatively easily. I first identified the lower pole the kidney and then continued to split drought's fascia up the lateral aspect of the kidney until he reached the upper pole. I was able to identify the cystic lesion at the extreme upper pole, medial aspect of the kidney. I dissected circumferentially around the cystic lesion for full exposure. As we did so, it was clear that this mass was abutting the kidney but not intimately involved for a large surface area. At the end I think there was approximately a 2-1/2 cm defect/connection between the cystic lesion and the kidney itself. Before continuing with dissection of the renal mass, I turned my attention to the hilum. Given the inability to safely dissect into the hilar structures outside of Gerota's fascia, I turned my attention back to the area inside Gerota's. I went to the hilar center of the kidney and dissected laterally until identified a branching renal vein as well as a solitary renal artery. I dissected these further medial to confirm that we had collected all branches. I dissected on each of the structures circumferentially which would allow easy placement bulldog clamps. Before proceeding with further dissection, I performed a full laparoscopic ultrasound of the mass and healthy appearing kidney. I marked tentative locations for my incision. I then preplaced 2 V-Loc sutures for kidney reconstruction. I placed an additional 2-0 Vicryl suture for deep reconstruction. We administered 12.5 g of mannitol. Time was marked and a short curved bulldog was placed across the re nal artery. A long straight bulldog clamp was placed across the renal vein. I then turned my attention to resection of the mass. Utilizing the previously marked area of the renal capsule I was able to incise and remove this cystic lesion en bloc. There was a small amount of normal-appearing renal parenchyma that was excised as a margin with this. The defect was quite small and did not reach the collecting system. Renorrhaphy was conducted utilizing the previously placed V-Loc suture sewing from the posterior margin to the anterior margin and locked in place with a Weck clip which was then slid down the stitch to apply pressure to the closure. 2 stitches were placed followed by a third suture going across the middle portion of the defect. No deep closure was required. At that time we unclamped the vessels beginning with the vein followed by the artery. Warm ischemia time was 16 minutes. Bleeding was very well-controlled and hemostasis excellent. The mass was collected in an Endo Catch bag. The defect was covered first with Floseal followed by a small sheet of Surgicel. Introitus fascia was reapproximated utilizing the previously placed 2-0 Vicryl suture. We then undocked the robot. The 12 mm energy assistant port was closed utilizing a Refugio-Chris device and a 0 Vicryl suture. The specimen was extracted through the lowest robotic port with slight expansion of the port to accommodate the mass. A small HERMELINDO drain was placed through the second robotic port. This was sutured in place utilizing 3-0 nylon. Fascia from the extraction site was closed with a running 0 Vicryl followed by closure of the dartos fascia utilizing the same 0 Vicryl. All skin incisions were infiltrated with half percent Marcaine and closed with 4-[address]oc[address] Teddy Powell assisted with the dissection and blackwell portions of the case including full warm ischemia time, bulldog placement and removal of the mass/reconstruction. Char Little assisted with all other portions of the case. There were no complications. The mass was passed off the table for pathology. She was reversed of anesthesia and taken to the recovery room in stable condition. I attest to the content of the Intraoperative Record and any orders documented therein. Any exceptions are noted below.
[2024-03-09] MEDS: fentaNYL citrate PF 100 MCG/2 ML VIAL IV PRN (11:35)
[2024-03-09 11:51] LABS: BUN Creatinine Ratio 19.5 (10-20); Calcium 8.8 mg/dl (8.6-10.3); Creatinine Clr Calc Pharmacy 84.8 ml/min; Potassium 4.1 mmol/L (3.5-5.1)
[2024-03-09 11:54] LABS: Basophils # (auto) 0.03 K/uL (0.00-0.20); Basophils % (auto) 0.3 %; Eosinophils # (auto) 0.01 K/uL (0.00-0.50); Eosinophils % (auto) 0.1 %; Immature Granulocytes # (auto) 0.08 K/uL (0.01-0.20); Immature Granulocytes % (auto) 0.7 %; Lymphocytes # (auto) 1.07 K/uL (1.20-3.40); Lymphocytes % (auto) 9.7 %; Mean Corpuscular Hemoglobin 28.2 pg (25.0-34.0); Mean Corpuscular Hgb Conc 31.7 g/dL (32.0-36.0); Mean Corpuscular Volume 88.9 fL (80.0-100.0); Mean Platelet Volume 11.7 fL (9.4-12.4); Monocytes # (auto) 0.18 K/uL (0.11-0.59); Monocytes % (auto) 1.6 %; Neutrophils # (auto) 9.64 K/uL (1.40-6.50); Neutrophils % (auto) 87.6 %; Platelet Count 127 K/uL (130-400); RDW Coefficient of Variation 13.4 % (11.5-14.5); RDW Standard Deviation 43.7 fL (36.4-46.3); Red Blood Count 4.61 M/uL (4.20-5.40); White Blood Count 11.01 K/ul (4.8-10.8)
--- NOTE | 2024-03-09 12:12 | Anesthesiology Progress Note ---
Date of Service March 09, 2024 Anesthesia Post Procedure Vital Signs Vital Signs: Temp Pulse Pulse Resp BP Pulse Ox O2 Del Method 03/09/24 12:00 84 19 156/86 H 94 Oxymask 03/09/24 11:50 85 18 150/90 H 96 Oxymask 03/09/24 11:40 83 17 153/81 H 92 Oxymask 03/09/24 11:30 85 23 156/83 H 92 Oxymask 03/09/24 11:20 88 23 153/93 H 92 Oxymask 03/09/24 11:12 36.7 C 76 17 141/73 H 93 Oxymask 03/09/24 06:11 37.1 C 61 20 171/82 H 94 Room Air O2 Flow Rate 03/09/24 12:00 4 03/09/24 11:50 12 03/09/24 11:40 12 03/09/24 11:30 12 03/09/24 11:20 8 03/09/24 11:12 8 03/09/24 06:11 Pain Intensity Abdomen: Pain Intensity: 6 Transfer of Care Handoff Completed per policy Notes Mental Status: alert / awake / arousable and participated in evaluation Patient Amnestic to Procedure: Yes Nausea / Vomiting: adequately controlled Pain: adequately controlled Airway Patency, RR, SpO2: stable & adequate BP & HR: stable & adequate Hydration State: stable & adequate Anesthetic Complications: no major complications apparent and Pt Satisfied with anesthetic care Notes: will continue supplemental oxygen on floor overnight (patient has had troubles weaning from oxygen post surgeries after she had severe covid several years ago). Also wrote an order for respiratory therapy to give her a CPAP overnight as the patient did not bring hers along with her today.
[2024-03-09] MEDS ORDERED: ALBUTEROL HFA 8 GM INHALER INH PRN (13:10)
[2024-03-09] MEDS ORDERED: MoRPHine SULFATE 4 MG/ML 1 ML CARP\\VIAL IV PRN (13:10)
[2024-03-09] MEDS ORDERED: MoRPHine SULFATE 2 MG/ML CARP IV PRN (13:10)
[2024-03-09] MEDS ORDERED: PANTOprazole 40 MG TAB PO PRN (13:12)
[2024-03-09] MEDS: oxyCODONE HCL IR 5 MG TAB (IMMEDIATE RELEASE) PO PRN (13:45)
[2024-03-09] MEDS: ACETAMINOPHEN 325 MG TAB PO SCH (14:17)
[2024-03-09] MEDS: SODIUM CHLORIDE 0.9% 1,000 ML IV SCH (15:09)
[2024-03-09] MEDS: DOCUSATE SODIUM 100 MG CAP PO SCH (19:38)
[2024-03-09] MEDS: SIMVASTATIN 20 MG TAB PO SCH (19:39)
[2024-03-10 08:02] LABS: Basophils # (auto) 0.01 K/uL (0.00-0.20); Basophils % (auto) 0.1 %; Hematocrit (blood only) 37.9 % (37.0-47.0); Immature Granulocytes # (auto) 0.05 K/uL (0.01-0.20); Immature Granulocytes % (auto) 0.6 %; Lymphocytes # (auto) 1.35 K/uL (1.20-3.40); Lymphocytes % (auto) 15.2 %; Mean Corpuscular Hgb Conc 31.7 g/dL (32.0-36.0); Mean Corpuscular Volume 88.6 fL (80.0-100.0); Mean Platelet Volume 11.9 fL (9.4-12.4); Monocytes # (auto) 0.88 K/uL (0.11-0.59); Monocytes % (auto) 9.9 %; Neutrophils # (auto) 6.59 K/uL (1.40-6.50); Neutrophils % (auto) 74.2 %; Platelet Count 143 K/uL (130-400); RDW Coefficient of Variation 13.7 % (11.5-14.5); RDW Standard Deviation 44.1 fL (36.4-46.3); Red Blood Count 4.28 M/uL (4.20-5.40); White Blood Count 8.88 K/ul (4.8-10.8)
--- NOTE | 2024-03-10 08:03 | Urology Progress Note ---
Date of Service March 10, 2024 Assessment & Plan (1) Complex renal cyst: Plan Postop day #1 status post left robotic partial nephrectomy Recovery very much on pace Plan for Knowles catheter removal this morning, drain removal later today if minimal change in output Awaiting final labs from this morning but overall recovery much on pace Admission and Anticipated Discharge Date Admission Date: March 09, 2024 Subjective Recovering very much on pace after partial nephrectomy yesterday Clear urine Minimal drain output Feels well aside from the expected surgical pain Has not really ambulated yet Physical Exam Physical Exam: HERMELINDO with scant serosanguineous output Urine clear Abdomen soft, incisions appropriate Results & Data Vital Signs (Past 12 Hours) Vital Signs Temp Pulse Resp BP Pulse Ox O2 Del Method O2 Flow Rate 03/10/24 07:49 36.9 C 60 16 123/66 96 Nasal Cannula 2 03/10/24 07:15 Nasal Cannula 2 03/10/24 03:48 36.5 C 63 18 123/71 98 Room Air 03/09/24 22:41 36.6 C 63 18 127/67 97 Nasal Cannula 4 03/09/24 21:39 Nasal Cannula, CPAP 4 PG Care Time/CCT Total # of Minutes Spent Total Time Spent with Patient: Total time spent is greater than 50% in coordination of care (as documented) at patient's floor/unit and/or counseling patient: Coding Level of Care Code None Diagnoses Complex renal cyst N28.1
[2024-03-10 08:24] LABS: BUN Creatinine Ratio 16.4 (10-20); Calcium 8.9 mg/dl (8.6-10.3); Creatinine Clr Calc Pharmacy 95.2 ml/min; Potassium 4.3 mmol/L (3.5-5.1)
[2024-03-10] MEDS: ANASTROZOLE 1 MG TAB PO SCH (09:00)
[2024-03-10] MEDS: LOSARTAN POTASSIUM 50 MG TAB PO SCH (09:01)
[2024-03-10] MEDS: CHOLECALCIFEROL 25 MCG (1000 UNITS) TAB PO SCH (09:01)
[2024-03-10] MEDS: buPROPion XL 150 MG TABCR PO SCH (09:01)
[2024-03-10] MEDS: oxyCODONE HCL IR 5 MG TAB (IMMEDIATE RELEASE) PO PRN (11:28)
[2024-03-11 07:46] VITALS: RESP 17; TEMP 98.2; O2SAT 96
--- NOTE | 2024-03-11 08:19 | Urology Progress Note ---
Date of Service March 11, 2024 Assessment & Plan (1) Complex renal cyst: Plan: - Patient POD#1 s/p left partial nephrectomy - Doing well, progressing as expected - Afebrile with stable vitals - Post op lab work stable, no new labs yet today - Minimal pain - Tolerating regular diet - Ambulating - Incisions appropriate - Voiding spontaneously - HERMELINDO drain removed yesterday - Patient has some allergy symptoms today and reports that she takes Yoli at home, will add Loratadine this am - Expected clinical course reviewed, all questions answered - Ready for discharge today - Will arrange outpatient follow-up Admission and Anticipated Discharge Date Admission Date: March 09, 2024 Subjective Patient seen and examined at bedside this morning. She is awake and sitting up in recliner. No acute issues overnight. She reports some watery eyes and nasal drainage this morning. Reports some incisional discomfort, well-managed with p.o. medication. She has been ambulating. Tolerating regular diet. Passing flatus. Denies nausea or vomiting. Knowles catheter was removed yesterday morning. She is voiding spontaneously. HERMELINDO drain was removed yesterday afternoon. Review of Systems Constitutional: as per Subjective / HPI Genitourinary: as per Subjective / HPI Physical Exam Constitutional: well developed, well nourished and + obese; no acute distress Respiratory: normal respiratory effort; no respiratory distress and no labored breathing Gastrointestinal (Abdomen): Inspection/Auscultation: abdomen normal to inspection Percussion/Palpation: abdomen soft Musculoskeletal: Head/Neck/Chest: normocephalic Skin: Left lateral incision with some surrounding ecchymosis. Incisions are well- approximated with Dermabond. HERMELINDO drain site covered with gauze pads which are without drainage. Neurologic: moves all extremities and awake Psychiatric: Orientation: alert and oriented x 3 Results & Data Vital Signs (Past 12 Hours) Vital Signs Temp Pulse Pulse Resp BP Pulse Ox O2 Del Method 03/11/24 07:43 36.8 C 64 17 125/77 96 Room Air 03/10/24 22:12 68 18 91 03/10/24 20:20 Room Air 03/10/24 20:19 36.7 C 72 19 129/67 94 Room Air FiO2 03/11/24 07:43 03/10/24 22:12 21 03/10/24 20:20 03/10/24 20:19 PG Care Time/CCT Total # of Minutes Spent Total Time Spent with Patient: Total time spent is greater than 50% in coordination of care (as documented) at patient's floor/unit and/or counseling patient: Coding Level of Care Code None Diagnoses Complex renal cyst N28.1
--- NOTE | 2024-03-11 08:29 | Discharge Summary ---
Date of Service March 11, 2024 Admission HPI Per Admitting Provider Patient with complex renal cyst here for Robotic Assisted Laparoscopic Partial Left Nephrectomy Principal Diagnosis Complex renal cyst Discharge Exam Constitutional well developed, well nourished and + obese; no acute distress Respiratory normal respiratory effort; no respiratory distress and no labored breathing Gastrointestinal (Abdomen) Inspection/Auscultation: abdomen normal to inspection Percussion/Palpation: abdomen soft Musculoskeletal Head/Neck/Chest: normocephalic Neurologic moves all extremities and awake Psychiatric Orientation: alert and oriented x 3 Discharge Data Allergies Allergy/AdvReac Type Severity Reaction Status Date / Time adhesive Allergy Unknown Skin Verified 03/09/24 06:17 irritation No Known Drug Allergies Allergy . Verified 03/09/24 06:17 Procedures Performed Operation Date: 03/09/24 07:30 Actual Procedures p Robotic Assisted Laparoscopic Partial Left Nephrectomy(Left) - Anthony Mcelroy MD Hospital Course (1) Complex renal cyst: - Patient POD#1 s/p left partial nephrectomy - Doing well, progressing as expected - Afebrile with stable vitals - Post op lab work stable, no new labs yet today - Minimal pain - Tolerating regular diet - Ambulating - Incisions appropriate - Voiding spontaneously - HERMELINDO drain removed yesterday - Patient has some allergy symptoms today and reports that she takes Yoli at home, will add Loratadine this am - Expected clinical course reviewed, all questions answered - Ready for discharge today - Will arrange outpatient follow-up Total Time Total Time Spent Total Time Spent (In Minutes): 29 Discharge Plan Discharge Items Patient Disposition: Home - Self-Care Reason For Visit: RENAL MASS Discharge Diagnosis: Renal mass Activity: Per Instructions section Lifting: No more than 10 pounds Bathing Comment: Okay to shower after discharge, no tub bath or soaking Sexual Activity: Wait until after follow-up appointment Exercise/Sports: Wait until after follow-up appointment Driving/Machine Use: No driving while taking prescription pain medication Non-emergency contact: Surgeon and Urologist Call non-emergency contact if: your pain is not controlled, you have a fever, your temperature is above 101, your wound has increased redness, your wound has increased drainage and your wound pain has increased Follow-up/Referrals: Amarilis Lance MD [Primary Care Provider] - Diet: Regular Addtl Attending Provider Instructions: Please take all medications as prescribed and keep all follow-ups as scheduled. Please call our office at [phone] with any questions, concerns or need to reschedule appointments for any reason. We are happy to assist you. Recovering at home: We recommend having someone with you for the first few days after surgery to help care for you. It is okay to shower tomorrow. Please avoid swimming, bathing or using hot tub until incisions are well healed. Avoid driving until you are not requiring pain medication any further. Walk at least a few times a day. Increase your distance, as you feel able. Stairs in your home are okay. Please avoid strenuous or sexual activity until your follow-up. We recommend using stool softener (i.e. Colace) to prevent constipation and straining, especially the first two weeks post operatively. Call [facility] at [phone] if you experience: Chest pain or trouble breathing (call [phone] or go to the hospital). Fever of 101F or higher Symptoms of infection at incision site, including redness or swelling, warmth, or bad-smelling drainage If you have catheter, and you notice: o Bloody urine or drainage that is dark red or has large clots (Please remember a small amount of blood is normal) o No drainage from the catheter for more than 6 hours o The catheter comes out of your bladder Pain that is not controlled with medicines Pending Studies at Discharge: Yes (pathology) Stand-Alone Forms: [facility], Smoking Cessation Medications and DC Order Prescriptions: New oxycodone-acetaminophen [Percocet] 5-325 mg tablet 1 tab PO TID PRN (Reason: pain) Qty: 10 0RF Continued (DME) CPAP Supplies Misc See Rx Instructions .Route Qty: 1 0RF Rx Instructions: All CPAP Supplies ketoconazole 2 % cream 1 applic topical DAILY Qty: 15 1RF cyclobenzaprine 5 mg tablet 5 mg PO TID PRN (Reason: Muscle Spasm) Qty: 90 0RF Ca-D3-mag lo-ezrs-zre-elizabeth-bor [Calcium 600-D3 Plus (mag-zinc)] 600 mg calcium- 20 mcg-50 mg tablet 1 tab PO DAILY albuterol sulfate 90 mcg/actuation HFA aerosol inhaler 2 puff inhalation Q6H PRN (Reason: Wheezing) fexofenadine [Yoli Allergy] 60 mg tablet 60 mg PO QAM Rx Instructions: UNKNOWN STRENGTH fluticasone propionate [Flonase Allergy Relief] 50 mcg/actuation spray,suspension 2 sprays INTNAS DAILY PRN (Reason: Allergy Symptoms) Rx Instructions: Administer into each nostril acetaminophen [Tylenol Extra Strength] 500 mg Tablet 1,000 mg PO Q6H PRN (Reason: Fever Or Pain) anastrozole 1 mg tablet 1 mg PO QAM cholecalciferol (vitamin D3) 100 mcg (4,000 unit) Capsule 1,000 unit PO QAM omeprazole 40 mg capsule,delayed release(DR/EC) 40 mg PO DAILY PRN (Reason: gerd) Rx Instructions: Takes as needed simvastatin 20 mg tablet 20 mg PO QPM Rx Instructions: TAKE ONE TABLET BY MOUTH ONCE DAILY IN THE EVENING losartan 100 mg tablet 100 mg PO QAM bupropion HCl 150 mg tablet extended release 24 hr 150 mg PO QAM Rx Instructions: TAKE ONE TABLET BY MOUTH IN THE MORNING Discharge Orders: Discharge Order (Routine); Ordered 03/11/24 Ordered By: Char Cornelius/Other Patient Handouts: Laparoscopic Nephroureterectomy, Nephrectomy Dc Admission Data Admit Date/Time: 03/09/24 11:12 Attending Provider: Anthony Mcelroy Admit Provider: Anthony Mcelroy Primary Care Provider: Amarilis Lance Other Interventions: Discharge Summary Assessment (RN) Last Done: 03/11/24 12:30 Coding Level of Care Code 55025 IN/OBS DISCH 30 MIN/LESS Diagnoses Complex renal cyst N28.1
[2024-03-11 08:56] VITALS: BP 157/78; PULSE 72
[2024-03-11] MEDS: LORATADINE 10 MG TAB PO ONE (09:01)
[2024-03-11 09:12] LABS: Basophils # (auto) 0.03 K/uL (0.00-0.20); Basophils % (auto) 0.4 %; Eosinophils # (auto) 0.05 K/uL (0.00-0.50); Eosinophils % (auto) 0.6 %; Immature Granulocytes # (auto) 0.03 K/uL (0.01-0.20); Immature Granulocytes % (auto) 0.4 %; Lymphocytes # (auto) 2.04 K/uL (1.20-3.40); Lymphocytes % (auto) 26.4 %; Mean Corpuscular Hgb Conc 30.8 g/dL (32.0-36.0); Mean Corpuscular Volume 91.1 fL (80.0-100.0); Mean Platelet Volume 11.6 fL (9.4-12.4); Monocytes # (auto) 0.46 K/uL (0.11-0.59); Monocytes % (auto) 5.9 %; Neutrophils # (auto) 5.13 K/uL (1.40-6.50); Neutrophils % (auto) 66.3 %; Platelet Count 124 K/uL (130-400); RDW Standard Deviation 46.2 fL (36.4-46.3); Red Blood Count 4.28 M/uL (4.20-5.40); White Blood Count 7.74 K/ul (4.8-10.8)
[2024-03-11 09:28] LABS: BUN Creatinine Ratio 21.1 (10-20); Calcium 9.1 mg/dl (8.6-10.3); Creatinine Clr Calc Pharmacy 91.5 ml/min
--- NOTE | 2024-03-17 05:28 | Coding Query ---
PATHOLOGY To promote full compliance with coding requirements relating to patient care, physician participation is requested in all cases of refractory furnace designer uncertainty. Please assist us with the question(s) below: Please review the Pathology report and please document any relevant diagnosis(es) below: Diagnosis(es): clear cell renal cell carcinoma Thank you Nasra BRIDGES
--- NOTE | 2024-03-17 05:30 | Coding Query ---
BMI To promote full compliance with coding requirements relating to patient care, physician participation is requested in all cases of foundry process engineer uncertainty. Please assist us with the question(s) below: Please place an X within the parenthesis (x). If other, please document: The following was documented in the operative report: "Of note, she has a significant mount of intra-abdominal fat and limited space. I was able to incise the white line of Toldt and medialized the colon and move the omentum off of the underlying left kidney. Gerota's fascia was identified and there was a substantial amount of fat around the kidney, estimated to be 5 cm in thickness in all directions. Unfortunately, this dissection was somewhat challenging because of the copious amounts of fat. If the patient's weight is significant, please check the box that provides a more specific associated diagnosis: ( ) Overweight/Obese ( ) Obesity (x) Morbid obesity ( ) Obesity Hypoventilation Syndrome (OHS) ( ) Heathy weight, not significant ( ) Underweight/Thin ( ) Other, please specify Thank you Nasra BRIDGES
== END 2024-03-11 13:16 | disposition home or self-care (01) | DRG 657 ==
LOC: ASU 05:49 → 3N 11:12